=== PATIENT | female | born 1990 | race Two or more races ===

== ENCOUNTER 2024-12-05 10:17 | Outpatient (AMB) | payer OTHER, SELFPAY ==
--- NOTE | 2024-12-05 10:20 | OBCLNT_ITS ---
Vital Signs 12/05/24 10:29 Height 1.65 m Height Method Stated Weight 118.047 kg Weight Measurement Method Standing Scale BMI 43.2 BP 123/78 Blood Pressure Source Automatic Cuff Blood Pressure Location Left Upper Arm Position Sitting Respiration 20 Pulse 74 Pulse Source Monitor Temp 98.2 F Temp Source Temporal Artery Scan Pulse Oximetry (%) 98 Oxygen Delivery Method Room Air Allergies/Home Meds Allergies & Medications Allergies No Known Allergies Allergy (Verified 12/05/24 10:30) Medication Reconciliation vits no.126-ferrous fum 28 mg iron-folic acid 800 mcg tablet (Classic ) tab PO 12/05/24 [History Confirmed 12/05/24] Intake Visit Data Collection New Patient or Established: New Patient (never been to [facility]) Reason for Visit:: obi Do You Feel Safe at Home: Yes Authorities Contacted: N/A PCP or OBGYN visit in last 3 months: Yes Last menstrual period: 10/02/24 Pain Present Currently: No Smoking Status Smoking Status: Never smoker Questionnaires Covid-19 Vaccine Questionnaire Has patient been vacinated for Covid-19 Have you been vacinated for Covid-19: Yes PHQ-9 PHQ-2 Over the last 2 weeks, how often have you been bothered by any of the following problems? 1. Little interest or pleasure in doing things: not at all 2. Feeling down, depressed, or hopeless: not at all Total score: 0 Depression screen completed yes Social History Living Situation History Marital Status: Life Partner Lives With: Family Housing: House Housing Other:: Patient works at [employer] in [place] Tobacco History Smoking Status: Never smoker Alcohol History Alcohol Intake: Never Domestic Abuse History Do You Feel Safe at Home: Yes History of Present Illness HPI Narrative The patient is a 34-year-old -0-2-0 who used to see me in [place]. She underwent a miscarriage in 2022 she was about 6 weeks along. She states that was going to schedule a D&C however she miscarried on her own. She then had a very early chemical in 2023 where she did not really miss a cycle.Her period was a couple days late and heavier so she thinks this was a . Patient has had gastric sleeve in the past. She still has a BMI starting this at 43. 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 The father the baby Marcelo is present with her today. OB Ultrasound Indication Indication: Size dates viability OB Ultrasound Ultrasound technique: transvaginal Gestational sac assessment: Presence, location, size, shape: Live intrauterine with a crown-rump length of 2 cm corresponding to 8 weeks 2 days and an EDC of 07/18/2025 cardiac to activity at 140s MANAGER OF WAREHOUSE: Past Medical History Additional Operations/Hospitalizations (year & reason): Obesity status post gastric sleeve in 2019 Other Relevant History: Early miscarriage x 2 in 2022 and 2023 neither required a D&C. OB Initial Visit OB Flowsheet OB Flowsheet Initial Weight: Not Recorded Date -?-?-?-?-?-?-?-?-?-?-?-?- EGA Weight Edema CTX Effacement BP Fundal ht Pres Dilation Effacement Station Visit Note Alb Glu FHR Mov 12/05/24 -?-?-?-?-?-?-?-?-?-?-?-?- 8w 1d 118.047 kg 123/78 145 Menstrual History Menstrual reliability: definite Flow: normal Menstrual regularity: regular Monthly: Yes Age at menarche: 12 On control pills at conception: No Date of positive home test: 10/30/24 OB History : 3 Hx Total # of Abortions (Spontaneous & Elective): 2 Infection History & Risk Evaluation History of STDs: none HIV risk evaluation: low risk Hepatitis B risk evaluation: low risk Patient or partner has history of Genital Herpes: No Varicella/chicken pox status: immunized Genetic Screening & History Genetic Screening/Teratology Counseling - Includes patient, baby's father, or anyone in either family with: 1. Patient's age 35 years or older as of estimated date of delivery: Yes 2. Thalassemia (Turkish, Tajik, Mediterranean, or Background); MCV less than 80: No 3. Neural Tube Defect (Meningomyelocele, Spina Bifida, or Anencephaly): No 4. Congenital Heart Defect: No 5. Down Syndrome: No 6. Obie-Sachs (Ashkenazi Druze, Cajun, Turkish [place]): No 7. Ilana Disease (Ashkenazi Druze): No 8. Familial Dysautonomia (Ashkenazi Druze): No 9. Sickle Cell Disease or Trait (): No 10. Hemophilia or other blood disorders: No 11. Muscular Dystrophy: No 12. Cystic Fibrosis: No 13. Yaritza's Chorea: No 14. Mental Retardation/Autism: No 15. Other inherited genetic or chromosomal disorder: No 16. Maternal Metabolic Disorder (EG,TYPE 1 Diabetes, PKU): No 17. Patient or baby's father had a child with defects not listed above: No 18. Recurrent loss or a stillbirth: No 19. Medications (including supplements, vitamins, herbs or otc drugs)/illicit/recreational drugs/alcohol since last menstrual period: No 20. Any other: No Infection History 1. Live with someone with TB or exposed to TB: No 2. Rash or viral illness since last menstrual period: No 3. Hepatitis B,C: No Other (see comments) Source: [employer] Exam General General Appearance: alert, comfortable, cooperative, well developed, well groomed and obese Neck Neck exam: Present normal inspection, full ROM and trachea midline Chest Chest inspection: Present normal inspection and symmetric chest wall rise Resp Respiratory exam: Present normal lung sounds bilaterally Card Cardiovascular exam: Present regular rate, normal rhythm and normal heart sounds Extremities Extremities exam: Present normal inspection and full ROM Psych Psychiatric exam: Present normal affect and normal mood Skin Skin exam: Present warm, dry, intact and normal color Office Procedures OB Clinic LOC & Office Proc's Nursing/Assessment Patient Status: Initial/New Patient OB Clinic Nursing Assessment: BP Monitoring, Medication Reconciliation, Update PMH in EMR and Vital Signs OB Clinic Coordination of Care: Complex Care and Chronic Disease 1-5, Education Complex Pt/Fam, Consent,records obtained, informed consent, Results/Orders obtained and Staff clarify orders New Patient Charge New Patient Point Assignment: [id number] New Patient Point Charge: BINGO MANAGER Level 3 ([id number]) Bedside Ultrasounds US Transvaginal at bedside: Yes Assessment & Plan Diagnosis / Problem List (1) : Status: Acute Qualifiers: Weeks of gestation: 8 weeks Qualified Code(s): Z3A.08 - 8 weeks gestation of Assessment and Plan: labs ordered. Patient will start baby aspirin for obesity. Patient on vitamins. Information on NIPT given. (2) Morbid obesity with BMI of 40.0-44.9, adult: Status: Acute Assessment and Plan: Start baby aspirin. Monitor for PIH and gestational diabetes secondary to obesity. (3) H/O gastric sleeve: Status: Acute Assessment and Plan: Monitor iron throughout Additional Plan Follow Up: 4 Weeks
[2024-12-05 10:29] VITALS: BP 123/78; PULSE 74; RESP 20; TEMP 36.8; O2SAT 98; BMI 43.2
== END 2024-12-05 11:22 | disposition home or self-care (01) ==
LOC: HODSOBC 10:17
PROVIDERS: Supervising Provider Obstetrics & Gynecology; Visit Provider Obstetrics & Gynecology
DX: O09.521 Supervision of elderly multigravida, first trimester (principal); Z3A.08 8 weeks gestation of pregnancy; O09.291 Supervision of pregnancy with other poor reproductive or obstetric history, first trimester; O09.891 Supervision of other high risk pregnancies, first trimester; E66.01 Morbid (severe) obesity due to excess calories; O99.841 Bariatric surgery status complicating pregnancy, first trimester
CPT/HCPCS: 76817; 99203; G0463

== ENCOUNTER 2024-12-26 09:37 | Outpatient (AMB) | payer OTHER, SELFPAY ==
[2024-12-26 09:49] VITALS: BP 127/89; PULSE 67; RESP 17; TEMP 36.8; O2SAT 98; BMI 43.6
--- NOTE | 2024-12-26 09:49 | OBCLNT_ITS ---
Vital Signs 12/26/24 09:49 Height 1.65 m Height Method Stated Weight 118.841 kg Weight Measurement Method Standing Scale BMI 43.6 BP 127/89 H Blood Pressure Source Automatic Cuff Blood Pressure Location Right Upper Arm Position Sitting Respiration 17 Pulse 67 Pulse Source Monitor Temp 98.2 F Temp Source Temporal Artery Scan Pulse Oximetry (%) 98 Oxygen Delivery Method Room Air Allergies/Home Meds Allergies & Medications Allergies No Known Allergies Allergy (Verified 12/26/24 09:50) Medication Reconciliation vits no.126-ferrous fum 28 mg iron-folic acid 800 mcg tablet (Classic ) tab PO 12/05/24 [History Confirmed 12/26/24] Intake Visit Data Collection New Patient or Established: Established Patient (seen at [facility] within 3 years) Reason for Visit:: OBC Seen by Clinical Staff ONLY (RN/MA): No Delivery Truck Driver Heavy Required: No Do You Feel Safe at Home: Yes Authorities Contacted: N/A PCP or OBGYN visit in last 3 months: Yes Date of Last PCP or OBGYN visit: 12/05/24 Hx Now: Yes Are you currently on any form of Control: No Pain Present Currently: No Pain Scale Used: Lopez-Springer/Numerical Pain scale:: 0 Smoking Status Smoking Status: Never smoker Questionnaires Covid-19 Vaccine Questionnaire Has patient been vacinated for Covid-19 Have you been vacinated for Covid-19: Yes PHQ-9 PHQ-2 Over the last 2 weeks, how often have you been bothered by any of the following problems? 1. Little interest or pleasure in doing things: not at all 2. Feeling down, depressed, or hopeless: not at all Total score: 0 PHQ-9 3. Trouble falling or staying asleep, or sleeping too much: Not at all 4. Feeling tired or having little energy: Not at all 5. Poor appetite or overeating: Not at all 6. Feeling bad about yourself - or that you are a failure or have let yourself or your family down: Not at all 7. Trouble concentrating on things, such as reading the newspaper or watching television: Not at all 8. Moving or speaking so slowly that other people could have noticed? - Or the opposite - being so fidgety or restless that you have been moving around a lot more than usual: not at all 9. Thoughts that you would be better off or of hurting yourself in some way: Not at all Total score: 0 If you checked off any problems, how difficult have these problems made it for you to do your work, take care of things at home, or get along with other people?: not difficult at all Source: Developed by Drs. Rosalino Jones, Maranda Kearney, Leon Almonte and colleagues, with an educational joe from [employer]. Depression screen completed yes Social History Living Situation History Lives With: Family Housing: House Housing Other:: Patient works at [employer] in [place] Tobacco History Smoking Status: Never smoker Alcohol History Alcohol Intake: Never Domestic Abuse History Do You Feel Safe at Home: Yes LEVERMAN: Past Medical History Additional Operations/Hospitalizations (year & reason): The patient is a 34-year-old -0-2-0 status post early miscarriage x 2 in the past. Other Relevant History: Obesity with gastric sleeve in the past. History of Present Illness HPI Narrative The patient is a 34-year-old -0-2-0 status post early miscarriage in the past history of gastric sleeve who presents for obstetrical care. OB Ultrasound Indication Indication: Size, dates, viability OB Ultrasound Ultrasound technique: transabdominal Gestational sac assessment: Presence, location, size, shape: Live intrauterine with a crown-rump length of 4.51 cm corresponding 11 weeks 2 days Care OB Visit Log OB Flowsheet Initial Weight: Not Recorded Date -?-?-?-?-?-?-?-?-?-?-?-?- EGA Weight BP Alb Glu CTX Pres Fundal ht FHR Mov Dilation Station Effacement Hx Notes Visit Note 12/05/24 -?-?-?-?-?-?-?-?-?-?-?-?- 8w 1d 118.047 kg 123/78 145 12/26/24 -?-?-?-?-?-?-?-?-?-?-?-?- 11w 1d 118.841 kg 127/89 155 No vaginal bleeding. Patient is anxious as she has had 2 early miscarriages. Live intrauterine with crown- rump length of 4.51 cm corresponding 11 weeks 2 days seen. Patient does desire NIPT. She works at [employer]. Her is present today. MICHAEL Calculator Estimated Delivery Date Method Current WG Current Estimate 07/16/25 Ultrasound #1 11w 1d Other Estimates 07/09/25 LMP (Uncertain) 12w 1d Comments: -0-2-0 LMP 10/02/2024 labs O+\antibody negative\rubella immune\RPR nonreactive\HIV negative\hepatitis B surface antigen negative/ GC negative\chlamydia negative no hepatitis C drawn. Specific Issue/Plans 1. Morbid obesity with a BMI of 44 on baby aspirin. For level 2 ultrasound. 2. History of gastric sleeve in the past 3. Will need NSTs secondary to maternal morbid obesity. Notes Visit Date: 12/26/24 Last Updated by: Day Spears (OB Clinic)MD Patient on baby aspirin. Works at [employer]. They are aware she is . Father baby at bedside. labs reviewed. [facility]IPT ordered from [facility]. Visit Date: 12/05/24 Last Updated by: Day Spears (OB Clinic)MD New OB. Labs done. NIPT offered, Baby ASA foe maternal BMI of 42 Office Procedures OB Clinic LOC & Office Proc's Nursing/Assessment Patient Status: Established Patient OB Clinic Nursing Assessment: Medication Reconciliation, Update PMH in EMR and Vital Signs OB Clinic Coordination of Care: Complex Care and Chronic Disease 1-5, Consent,records obtained, informed consent, Education Simp Pt/Fam and Staff clarify orders Special Needs: Heart tones Established Patient Charge Established Patient Point Assignment: 115 Established Patient Point Charge: EP Level 3 (80-115) Assessment & Plan Diagnosis / Problem List (1) H/O gastric sleeve: Status: Acute (2) Morbid obesity with BMI of 40.0-44.9, adult: Status: Acute (3) : Status: Acute Qualifiers: Weeks of gestation: 11 weeks Qualified Code(s): Z3A.11 - 11 weeks gestation of Assessment and Plan: NIPT scheduled at [facility]
== END 2024-12-26 10:53 | disposition home or self-care (01) ==
LOC: HODSOBC 09:37
PROVIDERS: Supervising Provider Obstetrics & Gynecology; Visit Provider Obstetrics & Gynecology
DX: O09.521 Supervision of elderly multigravida, first trimester (principal); O09.291 Supervision of pregnancy with other poor reproductive or obstetric history, first trimester; O26.21 Pregnancy care for patient with recurrent pregnancy loss, first trimester; O09.891 Supervision of other high risk pregnancies, first trimester; Z3A.11 11 weeks gestation of pregnancy; O99.211 Obesity complicating pregnancy, first trimester; E66.01 Morbid (severe) obesity due to excess calories; O99.841 Bariatric surgery status complicating pregnancy, first trimester
CPT/HCPCS: 99213; G0463

== ENCOUNTER 2025-01-24 13:06 | Outpatient (AMB) | payer OTHER, SELFPAY ==
[2025-01-24 13:18] VITALS: BP 127/81; PULSE 75; RESP 17; TEMP 37; O2SAT 99; BMI 44.4
--- NOTE | 2025-01-24 13:18 | OBCLNT_ITS ---
Vital Signs 01/24/25 13:18 Height 1.65 m Height Method Stated Weight 121.109 kg Weight Measurement Method Standing Scale BMI 44.4 BP 127/81 Blood Pressure Source Automatic Cuff Blood Pressure Location Right Upper Arm Position Sitting Respiration 17 Pulse 75 Pulse Source Monitor Temp 98.6 F Temp Source Temporal Artery Scan Pulse Oximetry (%) 99 Oxygen Delivery Method Room Air Allergies/Home Meds Allergies & Medications Allergies No Known Allergies Allergy (Verified 01/24/25 13:19) Medication Reconciliation vits no.126-ferrous fum 28 mg iron-folic acid 800 mcg tablet (Classic ) tab PO 12/05/24 [History Confirmed 01/24/25] Intake Visit Data Collection New Patient or Established: Established Patient (seen at [facility] within 3 years) Reason for Visit:: OBC Seen by Clinical Staff ONLY (RN/MA): No Resource Management Planner Required: No Do You Feel Safe at Home: Yes Authorities Contacted: N/A PCP or OBGYN visit in last 3 months: Yes Date of Last PCP or OBGYN visit: 12/26/24 Hx Now: Yes Are you currently on any form of Control: No Pain Present Currently: No Pain Scale Used: Lopez-Springer/Numerical Pain scale:: 0 Smoking Status Smoking Status: Never smoker Questionnaires Covid-19 Vaccine Questionnaire Has patient been vacinated for Covid-19 Have you been vacinated for Covid-19: No PHQ-9 PHQ-2 Over the last 2 weeks, how often have you been bothered by any of the following problems? 1. Little interest or pleasure in doing things: not at all 2. Feeling down, depressed, or hopeless: not at all Total score: 0 PHQ-9 3. Trouble falling or staying asleep, or sleeping too much: Not at all 4. Feeling tired or having little energy: Not at all 5. Poor appetite or overeating: Not at all 6. Feeling bad about yourself - or that you are a failure or have let yourself or your family down: Not at all 7. Trouble concentrating on things, such as reading the newspaper or watching television: Not at all 8. Moving or speaking so slowly that other people could have noticed? - Or the opposite - being so fidgety or restless that you have been moving around a lot more than usual: not at all 9. Thoughts that you would be better off or of hurting yourself in some way: Not at all Total score: 0 If you checked off any problems, how difficult have these problems made it for you to do your work, take care of things at home, or get along with other people?: not difficult at all Source: Developed by Drs. Rosalino Jones, Maranda Kearney, Leon Almonte and colleagues, with an educational joe from [employer]. Depression screen completed yes Social History Living Situation History Marital Status: Lives With: Family Housing: House Housing Other:: Patient works at [employer] in [place] Tobacco History Smoking Status: Never smoker Second Hand Smoke Exposure: No Alcohol History Alcohol Intake: Never Domestic Abuse History Do You Feel Safe at Home: Yes Care OB Visit Log OB Flowsheet Initial Weight: Not Recorded Date -?-?-?-?-?-?-?-?-?-?-?-?- EGA Weight BP Alb Glu CTX Pres Fundal ht FHR Mov Dilation Station Effacement Hx Notes Visit Note 12/05/24 -?-?-?-?-?-?-?-?-?-?-?-?- 8w 1d 118.047 kg 123/78 145 12/26/24 -?-?-?-?-?-?-?-?-?-?-?-?- 11w 1d 118.841 kg 127/89 155 No vaginal bleeding. Patient is anxious as she has had 2 early miscarriages. Live intrauterine with crown- rump length of 4.51 cm corresponding 11 weeks 2 days seen. Patient does desire NIPT. She works at [employer]. Her is present today. 01/24/25 -?-?-?-?-?-?-?-?-?-?-?-?- 15w 2d 121.109 kg 127/81 15 157 absent No vaginal bleeding or contractions MICHAEL Calculator Estimated Delivery Date Method Current WG Current Estimate 07/16/25 Ultrasound #1 15w 2d Other Estimates 07/09/25 LMP (Uncertain) 16w 2d Expected Delivery Route/Plan labs on the chart.O+/antibody negative/rubella immune/ RPR nonreactive/hepatitis B surface antigen negative/HIV negative/GC negative/ Chlamydia negative /urine culture negative/ Specific Issue/Plans 1. Morbid obesity with a BMI of 44 on baby aspirin. For level 2 ultrasound. 2. History of gastric sleeve in the past 3. Will need NSTs secondary to maternal morbid obesity. Notes Visit Date: 01/24/25 Last Updated by: Day Spears (OB Clinic)MD Patient is present with the father of the baby. She is working at [employer]. She has no complaints. Her NIPT came back not enough cells. The plan is to recheck another NIPT and she has the paperwork for this. She has a level [address] Deluca March 05. Visit Date: 12/26/24 Last Updated by: Day Spears (OB Clinic)MD Patient on baby aspirin. Works at [employer]. They are aware she is . Father baby at bedside. labs reviewed. NIPT ordered from [facility]. Visit Date: 12/05/24 Last Updated by: Day Spears (OB Clinic)MD New OB. Labs done. NIPT offered, Baby ASA foe maternal BMI of 42 Office Procedures OB Clinic LOC & Office Proc's Nursing/Assessment Patient Status: Established Patient OB Clinic Nursing Assessment: Medication Reconciliation, Update PMH in EMR and Vital Signs OB Clinic Coordination of Care: Complex Care and Chronic Disease 1-5, Consent,records obtained, informed consent, Education Simp Pt/Fam and Staff clarify orders Special Needs: Heart tones Established Patient Charge Established Patient Point Assignment: 115 Established Patient Point Charge: EP Level 3 (80-115)
== END 2025-01-24 13:57 | disposition home or self-care (01) ==
LOC: HODSOBC 13:06
PROVIDERS: Supervising Provider Obstetrics & Gynecology; Visit Provider Obstetrics & Gynecology
DX: O09.892 Supervision of other high risk pregnancies, second trimester (principal); O99.212 Obesity complicating pregnancy, second trimester; E66.01 Morbid (severe) obesity due to excess calories; O09.522 Supervision of elderly multigravida, second trimester; O99.842 Bariatric surgery status complicating pregnancy, second trimester; O09.292 Supervision of pregnancy with other poor reproductive or obstetric history, second trimester; O26.22 Pregnancy care for patient with recurrent pregnancy loss, second trimester; Z3A.15 15 weeks gestation of pregnancy; Z79.82 Long term (current) use of aspirin
CPT/HCPCS: 99213; G0463

== ENCOUNTER 2025-03-13 09:13 | Outpatient (AMB) | payer OTHER, SELFPAY ==
[2025-03-13 09:28] VITALS: BP 119/80; PULSE 91; RESP 18; TEMP 36.6; O2SAT 98; BMI 46.2
--- NOTE | 2025-03-13 09:28 | OBCLNT_ITS ---
Vital Signs 03/13/25 09:28 Height 1.65 m Height Method Stated Weight 125.872 kg Weight Measurement Method Standing Scale BMI 46.2 BP 119/80 Blood Pressure Source Automatic Cuff Blood Pressure Location Left Upper Arm Position Sitting Respiration 18 Pulse 91 Pulse Source Monitor Temp 97.8 F Temp Source Oral Pulse Oximetry (%) 98 Oxygen Delivery Method Room Air Allergies/Home Meds Allergies & Medications Allergies No Known Allergies Allergy (Verified 03/13/25 09:30) Medication Reconciliation vits no.126-ferrous fum 28 mg iron-folic acid 800 mcg tablet (Classic ) tab PO 12/05/24 [History Confirmed 03/13/25] Intake Visit Data Collection New Patient or Established: Established Patient (seen at [facility] within 3 years) Reason for Visit:: CARE Seen by Clinical Staff ONLY (RN/MA): No Black Top Roller Required: No Do You Feel Safe at Home: Yes Authorities Contacted: N/A PCP or OBGYN visit in last 3 months: Yes Hx Now: Yes Are you currently on any form of Control: No Pain Present Currently: No Pain Scale Used: Lopez-Springer/Numerical Pain scale:: 0 Smoking Status Smoking Status: Never smoker Questionnaires Covid-19 Vaccine Questionnaire Has patient been vacinated for Covid-19 Have you been vacinated for Covid-19: Yes PHQ-9 PHQ-2 Over the last 2 weeks, how often have you been bothered by any of the following problems? 1. Little interest or pleasure in doing things: not at all 2. Feeling down, depressed, or hopeless: not at all Total score: 0 PHQ-9 3. Trouble falling or staying asleep, or sleeping too much: Not at all 4. Feeling tired or having little energy: Not at all 5. Poor appetite or overeating: Not at all 6. Feeling bad about yourself - or that you are a failure or have let yourself or your family down: Not at all 7. Trouble concentrating on things, such as reading the newspaper or watching television: Not at all 8. Moving or speaking so slowly that other people could have noticed? - Or the opposite - being so fidgety or restless that you have been moving around a lot more than usual: not at all 9. Thoughts that you would be better off or of hurting yourself in some way: Not at all Total score: 0 Source: Developed by Drs. Rosalino Jones, Maranda Kearney, Leon Almonte and colleagues, with an educational joe from [employer]. Depression screen completed yes Social History Living Situation History Lives With: Family Housing: House Housing Other:: Patient works at [employer] in [place] Tobacco History Smoking Status: Never smoker Second Hand Smoke Exposure: No Alcohol History Alcohol Intake: Never Domestic Abuse History Do You Feel Safe at Home: Yes Care OB Visit Log OB Flowsheet Initial Weight: Not Recorded Date -?-?-?-?-?-?-?-?-?-?-?-?- EGA Weight BP Alb Glu CTX Pres Fundal ht FHR Mov Dilation Station Effacement Hx Notes Visit Note 12/05/24 -?-?-?-?-?-?-?-?-?-?-?-?- 8w 1d 118.047 kg 123/78 145 12/26/24 -?-?-?-?-?-?-?-?-?-?-?-?- 11w 1d 118.841 kg 127/89 155 No vaginal bleeding. Patient is anxious as she has had 2 early miscarriages. Live intrauterine with crown- rump length of 4.51 cm corresponding 11 weeks 2 days seen. Patient does desire NIPT. She works at [employer]. Her is present today. 01/24/25 -?-?-?-?-?-?-?-?-?-?-?-?- 15w 2d 121.109 kg 127/81 15 157 absent No vaginal bleeding or contractions 03/13/25 -?-?-?-?-?-?-?-?-?-?-?-?- 22w 1d 125.872 kg 119/80 23 134 active Reviewed normal ultrasound 03/06/2025 Dr. Deluca. NIPT the second time she did it was 46XX. No contractions or vaginal bleeding. No loss of fluids. MICHAEL Calculator Estimated Delivery Date Method Current WG Current Estimate 07/16/25 Ultrasound #1 22w 1d Other Estimates 07/09/25 LMP (Uncertain) 23w 1d Expected Delivery Route/Plan labs on the chart.O+/antibody negative/rubella immune/ RPR nonreactive/hepatitis B surface antigen negative/HIV negative/GC negative/ Chlamydia negative /urine culture negative/ Specific Issue/Plans 1. Morbid obesity with a BMI of 44 on baby aspirin. For level 2 ultrasound. ( Dr Deluca 03/05/25) 2. History of gastric sleeve in the past 3. Will need NSTs secondary to maternal morbid obesity. Notes Visit Date: 03/13/25 Last Updated by: Day Spears (OB Clinic)MD Level 2 ultrasound 03/06/2025 Dr. Deluca live intrauterine in the breech presentation estimated weight 404 g EDC on ultrasound 07/19/2025. EDC by dating 07/09/2025 .normal anatomy . baby is in the 11th percentile SALAS normal placenta is posterior follow-up in 4 weeks for growth. Glucose challenge test ordered along with all lab work for history of gastric sleeve. Including CBC folate and B12 iron. Note for work. Visit Date: 01/24/25 Last Updated by: Day Spears (OB Clinic)MD Patient is present with the father of the baby. She is working at [employer]. She has no complaints. Her NIPT came back not enough cells. The plan is to recheck another NIPT and she has the paperwork for this. She has a level [address] Deluca March 05. Visit Date: 12/26/24 Last Updated by: Day Spears (OB Clinic)MD Patient on baby aspirin. Works at [employer]. They are aware she is . Father baby at bedside. labs reviewed. NIPT ordered from [facility]. Visit Date: 12/05/24 Last Updated by: Day Spears (OB Clinic)MD New OB. Labs done. NIPT offered, Baby ASA foe maternal BMI of 42 Office Procedures OB Clinic LOC & Office Proc's Nursing/Assessment Patient Status: Established Patient OB Clinic Nursing Assessment: Medication Reconciliation, Update PMH in EMR and Vital Signs OB Clinic Coordination of Care: Complex Care and Chronic Disease 1-5, Consent,records obtained, informed consent, Education Simp Pt/Fam, Lab and Imaging orders, Results/Orders obtained and Staff clarify orders Special Needs: Heart tones Established Patient Charge Established Patient Point Assignment: 135 Established Patient Point Charge: EP Level 4 (120-155) Assessment & Plan Diagnosis / Problem List (1) H/O gastric sleeve: Status: Acute (2) Morbid obesity with BMI of 40.0-44.9, adult: Status: Acute (3) : Status: Acute Qualifiers: Weeks of gestation: 22 weeks Qualified Code(s): Z3A.22 - 22 weeks [place] station of Additional Plan Follow Up: 4 Weeks
== END 2025-03-13 10:08 | disposition home or self-care (01) ==
LOC: HODSOBC 09:13
PROVIDERS: Supervising Provider Obstetrics & Gynecology; Visit Provider Obstetrics & Gynecology
DX: O09.522 Supervision of elderly multigravida, second trimester (principal); O09.292 Supervision of pregnancy with other poor reproductive or obstetric history, second trimester; Z3A.22 22 weeks gestation of pregnancy; O09.892 Supervision of other high risk pregnancies, second trimester; O99.212 Obesity complicating pregnancy, second trimester; E66.01 Morbid (severe) obesity due to excess calories; O99.842 Bariatric surgery status complicating pregnancy, second trimester; O32.1XX0 Maternal care for breech presentation, not applicable or unspecified; Z87.59 Personal history of other complications of pregnancy, childbirth and the puerperium
CPT/HCPCS: 99214; G0463

== ENCOUNTER 2025-04-10 14:10 | Observation (INO) | payer OTHER, SELFPAY ==
[2025-04-10] VITALS (16 sets, daily range): BP systolic 119; BP diastolic 65; PULSE 90–106; RESP 19–99; TEMP 36.8; O2SAT 98–99; BMI 47.4
--- NOTE | 2025-04-10 14:49 | XR_ITS ---
Examination: OB Transvaginal ultrasound of the pelvis, Limited Technique: Transvaginal sonographic images pelvis performed using shah scale imaging Exam date and time: April 10, 2025, 1526 hours INDICATIONS: Onset vaginal bleeding today, 27 week by history. FINDINGS: Cervix 4.2 cm closed IMPRESSION: Cervix 4.2 cm closed
--- NOTE | 2025-04-10 14:54 | XR_ITS ---
Examination: age Limited TECHNIQUE: Limited transabdominal sonographic images pelvis Date and time: April 10, 2025 1521 hours INDICATIONS: Vaginal bleeding today. FINDINGS: Viable intrauterine gestation cephalic presentation. spine maternal left. Cardiac motion 152 BPM. Placenta posterior grade 2 no abruption IMPRESSION: Viable intrauterine gestation cephalic presentation
== END 2025-04-10 16:52 | disposition home or self-care (01) ==
PROVIDERS: Admitting Provider Obstetrics & Gynecology; Referring Provider Obstetrics & Gynecology; Visit Provider Obstetrics & Gynecology
DX: O46.92 Antepartum hemorrhage, unspecified, second trimester (principal); Z3A.27 27 weeks gestation of pregnancy
CPT/HCPCS: 59025; 59899; 76815; 76817

== ENCOUNTER 2025-04-12 08:36 | Outpatient (AMB) | payer OTHER, SELFPAY ==
[2025-04-12 08:46] VITALS: BP 135/80; PULSE 98; RESP 16; TEMP 36.2; O2SAT 98; BMI 47.8
--- NOTE | 2025-04-12 08:46 | OBCLNT_ITS ---
Vital Signs 04/12/25 08:46 Height 1.65 m Height Method Stated Weight 130.238 kg Weight Measurement Method Standing Scale BMI 47.8 BP 135/80 H Blood Pressure Source Automatic Cuff Blood Pressure Location Left Upper Arm Position Sitting Respiration 16 Pulse 98 Pulse Source Monitor Temp 97.2 F Temp Source Oral Pulse Oximetry (%) 98 Oxygen Delivery Method Room Air Allergies/Home Meds Allergies & Medications Allergies No Known Allergies Allergy (Verified 04/12/25 08:47) Medication Reconciliation vits no.126-ferrous fum 28 mg iron-folic acid 800 mcg tablet (Classic ) 1 tab PO DAILY 12/05/24 [History Confirmed 04/12/25] Intake Visit Data Collection New Patient or Established: Established Patient (seen at [facility] within 3 years) Reason for Visit:: OBC Seen by Clinical Staff ONLY (RN/MA): No Temporary Administrative Assistant Required: No Do You Feel Safe at Home: Yes Authorities Contacted: N/A PCP or OBGYN visit in last 3 months: Yes Date of Last PCP or OBGYN visit: 04/10/25 Hx Now: Yes Are you currently on any form of Control: No Pain Present Currently: No Pain Scale Used: Lopez-Springer/Numerical Pain scale:: 0 Smoking Status Smoking Status: Never smoker Questionnaires Covid-19 Vaccine Questionnaire Has patient been vacinated for Covid-19 Have you been vacinated for Covid-19: Yes PHQ-9 PHQ-2 Over the last 2 weeks, how often have you been bothered by any of the following problems? 1. Little interest or pleasure in doing things: not at all 2. Feeling down, depressed, or hopeless: not at all Total score: 0 PHQ-9 3. Trouble falling or staying asleep, or sleeping too much: Not at all 4. Feeling tired or having little energy: Not at all 5. Poor appetite or overeating: Not at all 6. Feeling bad about yourself - or that you are a failure or have let yourself or your family down: Not at all 7. Trouble concentrating on things, such as reading the newspaper or watching television: Not at all 8. Moving or speaking so slowly that other people could have noticed? - Or the opposite - being so fidgety or restless that you have been moving around a lot more than usual: not at all 9. Thoughts that you would be better off or of hurting yourself in some way: Not at all Total score: 0 If you checked off any problems, how difficult have these problems made it for you to do your work, take care of things at home, or get along with other people?: not difficult at all Source: Developed by Drs. Rosalino Jones, Maranda Kearney, Leon Almonte and colleagues, with an educational joe from [employer]. Depression screen completed yes Social History Living Situation History Lives With: Family Housing: House Housing Other:: Patient works at [employer] in [place] Tobacco History Smoking Status: Never smoker Second Hand Smoke Exposure: No Alcohol History Alcohol Intake: Never Domestic Abuse History Do You Feel Safe at Home: Yes Care OB Visit Log OB Flowsheet Initial Weight: Not Recorded Date -?-?-?-?-?-?-?-?-?-?-?-?- EGA Weight BP Alb Glu CTX Pres Fundal ht FHR Mov Dilation Station Effacement Hx Notes Visit Note 12/05/24 -?-?-?-?-?-?-?-?-?-?-?-?- 8w 1d 118.047 kg 123/78 145 12/26/24 -?-?-?-?-?-?-?-?-?-?-?-?- 11w 1d 118.841 kg 127/89 155 No vaginal bleeding. Patient is anxious as she has had 2 early miscarriages. Live intrauterine with crown- rump length of 4.51 cm corresponding 11 weeks 2 days seen. Patient does desire NIPT. She works at [employer]. Her is present today. 01/24/25 -?-?-?-?-?-?-?-?-?-?-?-?- 15w 2d 121.109 kg 127/81 15 157 absent No vaginal bleeding or contractions 03/13/25 -?-?-?-?-?-?-?-?-?-?-?-?- 22w 1d 125.872 kg 119/80 23 134 active Reviewed normal ultrasound 03/06/2025 Dr. Deluca. NIPT the second time she did it was 46XX. No contrac tions or vaginal bleeding. No loss of fluids. 04/12/25 -?-?-?-?-?-?-?-?-?-?-?-?- 26w 3d 130.238 kg 135/80 occasional 27 156 active + FM no UCs or VB Went to OBT with VB recently MICHAEL Calculator Estimated Delivery Date Method Current WG Current Estimate 07/16/25 Ultrasound #1 26w 3d Other Estimates 07/09/25 LMP (Uncertain) 27w 3d Expected Delivery Route/Plan labs on the chart.O+/antibody negative/rubella immune/ RPR non reactive/hepatitis B surface antigen negative/HIV negative/GC negative/ Chlamydia negative /urine culture negative/ 1 hour glucose 82. Hemoglobin A1c on 03/28/25 5.6 hemoglobin 03/28/25 10.8. Specific Issue/Plans 1. Morbid obesity with a BMI of 44 on baby aspirin. For level 2 ultrasound. ( Dr Deluca 03/05/25) 2. History of gastric sleeve in the past 3. Will need NSTs secondary to maternal morbid obesity. Notes Visit Date: 04/12/25 Last Updated by: Day Spears (OB Clinic)MD Patient has been to triage twice with bleeding. Most recently 2 days ago. She had a transvaginal ultrasound and no signs of labor or abruption. Patient is having a hard time at work. They are not accommodating her even though I wrote a note for her and told her they do not have a position for her. At this point we will take her off work on disability secondary to bleeding in . She will be on modified bedrest and pelvic rest the remainder of . Visit Date: 03/13/25 Last Updated by: Day Spears (OB Clinic)MD Level 2 ultrasound 03/06/2025 Dr. Deluca live intrauterine in the breech presentation estimated weight 404 g EDC on ultrasound 07/19/2025. EDC by dating 07/09/2025 .normal anatomy . baby is in the 11th percentile SALAS normal placenta is posterior follow-up in 4 weeks for growth. Glucose challenge test ordered along with all lab work for history of gastric sleeve. Including CBC folate and B12 iron. Note for work. Visit Date: 01/24/25 Last Updated by: Day Spears (OB Clinic)MD Patient is present with the father of the baby. She is working at [employer]. She has no complaints. Her NIPT came back not enough cells. The plan is to recheck another NIPT and she has the paperwork for this. She has a level [address] Deluca March 05. Visit Date: 12/26/24 Last Updated by: Day Spears (OB Clinic)MD Patient on baby aspirin. Works at [employer]. They are aware she is . Father baby at bedside. labs reviewed. NIPT ordered from [facility]. Visit Date: 12/05/24 Last Updated by: Day Spears (OB Clinic)MD New OB. Labs done. NIPT offered, Baby ASA foe maternal BMI of 42 Office Procedures OB Clinic LOC & Office Proc's Nursing/Assessment Patient Status: Established Patient OB Clinic Nursing Assessment: Medication Reconciliation, Update PMH in EMR and Vital Signs OB Clinic Coordination of Care: Education Complex Pt/Fam, Consent,records obtained, informed consent, Lab and Imaging orders, Results/Orders obtained and Staff clarify orders Special Needs: Heart tones Established Patient Charge Established Patient Point Assignment: 115 Established Patient Point Charge: EP Level 3 (80-115) Assessment & Plan Diagnosis / Problem List (1) H/O gastric sleeve: Status: Acute Plan: Encourage p.o. iron. Current hemoglobin 10.8. (2) Morbid obesity with BMI of 40.0-44.9, adult: Status: Acute Plan: Following with MFM on baby aspirin (3) : Status: Acute Qualifiers: Weeks of gestation: 27 weeks Qualified Code(s): Z3A.27 - 27 weeks gestation of Plan: Off work on modified bedrest and pelvic rest the remainder of secondary to bleeding.
== END 2025-04-12 08:59 | disposition home or self-care (01) ==
LOC: HODSOBC 08:36
PROVIDERS: Supervising Provider Obstetrics & Gynecology; Visit Provider Obstetrics & Gynecology
DX: O09.892 Supervision of other high risk pregnancies, second trimester (principal); O99.212 Obesity complicating pregnancy, second trimester; E66.01 Morbid (severe) obesity due to excess calories; O99.842 Bariatric surgery status complicating pregnancy, second trimester; O09.522 Supervision of elderly multigravida, second trimester; Z3A.26 26 weeks gestation of pregnancy
CPT/HCPCS: 99213; G0463

== ENCOUNTER 2025-05-01 09:07 | Outpatient (AMB) | payer OTHER, SELFPAY ==
--- NOTE | 2025-05-01 09:14 | AMB.OBVISIT ---
Vital Signs 05/01/25 09:15 Height 1.65 m Height Method Stated Weight 132.052 kg Weight Measurement Method Standing Scale BMI 48.4 BP 113/77 Blood Pressure Source Automatic Cuff Blood Pressure Location Left Upper Arm Position Sitting Respiration 17 Pulse 108 H Pulse Source Monitor Temp 98.0 F Temp Source Temporal Artery Scan Pulse Oximetry (%) 98 Allergies/Home Meds Allergies & Medications Allergies No Known Allergies Allergy (Verified 05/01/25 09:17) Medication Reconciliation vits no.126-ferrous fum 28 mg iron-folic acid 800 mcg tablet (Classic ) 1 tab PO DAILY 12/05/24 [History Confirmed 05/01/25] aspirin 81 mg tablet 81 mg PO QDAY 05/01/25 [History Confirmed 05/01/25] Intake Visit Data Collection New Patient or Established: Established Patient (seen at [facility] within 3 years) Reason for Visit:: OBC Seen by Clinical Staff ONLY (RN/MA): No Panel Machine Tender Required: No Do You Feel Safe at Home: Yes Authorities Contacted: N/A PCP or OBGYN visit in last 3 months: Yes Date of Last PCP or OBGYN visit: 04/12/25 Hx Now: Yes Are you currently on any form of Control: No Pain Present Currently: No Pain Scale Used: Lopez-Springer/Numerical Pain scale:: 0 Smoking Status Smoking Status: Never smoker Questionnaires Covid-19 Vaccine Questionnaire Has patient been vacinated for Covid-19 Have you been vacinated for Covid-19: Yes PHQ-9 PHQ-2 Over the last 2 weeks, how often have you been bothered by any of the following problems? 1. Little interest or pleasure in doing things: not at all 2. Feeling down, depressed, or hopeless: not at all Total score: 0 PHQ-9 3. Trouble falling or staying asleep, or sleeping too much: Not at all 4. Feeling tired or having little energy: Not at all 5. Poor appetite or overeating: Not at all 6. Feeling bad about yourself - or that you are a failure or have let yourself or your family down: Not at all 7. Trouble concentrating on things, such as reading the newspaper or watching television: Not at all 8. Moving or speaking so slowly that other people could have noticed? - Or the opposite - being so fidgety or restless that you have been moving around a lot more than usual: not at all 9. Thoughts that you would be better off or of hurting yourself in some way: Not at all Total score: 0 If you checked off any problems, how difficult have these problems made it for you to do your work, take care of things at home, or get along with other people?: not difficult at all Source: Developed by Drs. Rosalino Jones, Maranda Kearney, Leon Almonte and colleagues, with an educational joe from [employer]. Depression screen completed yes Social History Living Situation History Marital Status: Single Lives With: Family Housing: House Housing Other:: Patient works at [employer] in [place] Tobacco History Smoking Status: Never smoker Second Hand Smoke Exposure: No Alcohol History Alcohol Intake: Never Domestic Abuse History Do You Feel Safe at Home: Yes Care OB Visit Log OB Flowsheet Initial Weight: Not Recorded Date <del>?</del> EGA Weight BP Alb Glu CTX Pres Fundal ht FHR Mov Dilation Station Effacement Hx Notes Visit Note 12/05/24 <del>?</del> 8w 1d 118.047 kg 123/78 145 12/26/24 <del>?</del> 11w 1d 118.841 kg 127/89 155 No vaginal bleeding. Patient is anxious as she has had 2 early miscarriages. Live intrauterine with crown-rump length of 4.51 cm corresponding 11 weeks 2 days seen. Patient does desire NIPT. She works at [employer]. Her is present today. 01/24/25 <del>?</del> 15w 2d 121.109 kg 127/81 15 157 absent No vaginal bleeding or contractions 03/13/25 <del>?</del> 22w 1d 125.872 kg 119/80 23 134 active Reviewed normal ultrasound 03/06/2025 Dr. Deluca. NIPT the second time she did it was 46XX. No contractions or vaginal bleeding. No loss of fluids. 04/12/25 <del>?</del> 26w 3d 130.238 kg 135/80 occasional 27 156 active +FM no UCs or VB Went to OBT with VB recently 05/01/25 <del>?</del> 29w 1d 132.052 kg 113/77 occasional 32 134 active +FM No UCs or VB Has f/u US with Dr Deluca 05/15 MICHAEL Calculator Estimated Delivery Date Method Current WG Current Estimate 07/16/25 Ultrasound #1 30w 2d Other Estimates 07/09/25 LMP (Uncertain) 31w 2d Expected Delivery Route/Plan 35 y/o labs on the chart.O+/antibody negative/rubella immune/ RPR nonreactive/hepatitis B surface antigen negative/HIV negative/GC negative/ Chlamydia negative /urine culture negative/ 1 hour glucose 82. Hemoglobin A1c on 03/28/25 5.6 hemoglobin 03/28/25 10.8. Specific Issue/Plans 1. Morbid obesity with a BMI of 44 on baby aspirin. For level 2 ultrasound. ( Dr Deluca 03/05/25) 2. History of gastric sleeve in the past 3. Will need NSTs secondary to maternal morbid obesity. 4. AMA Notes Visit Date: 05/01/25 Last Updated by: Day Spears ([facility] Clinic)MD Pt off work. Will need NSTS/BPPS for BMI of 48 and AMA Did GCT and WNL Visit Date: 04/12/25 Last Updated by: Day Spears ([facility] Clinic)MD Patient has been to triage twice with bleeding. Most recently 2 days ago. She had a transvaginal ultrasound and no signs of labor or abruption. Patient is having a hard time at work. They are not accommodating her even though I wrote a note for her and told her they do not have a position for her. At this point we will take her off work on disability secondary to bleeding in . She will be on modified bedrest and pelvic rest the remainder of . Visit Date: 03/13/25 Last Updated by: Day Spears ([facility] Clinic)MD Level 2 ultrasound 03/06/2025 Dr. Deluca live intrauterine in the breech presentation estimated weight 404 g EDC on ultrasound 07/19/2025. EDC by dating 07/09/2025 .normal anatomy . baby is in the 11th percentile SALAS normal placenta is posterior follow-up in 4 weeks for growth. Glucose challenge test ordered along with all lab work for history of gastric sleeve. Including CBC folate and B12 iron. Note for work. Visit Date: 01/24/25 Last Updated by: Day Spears ([facility] Clinic)MD Patient is present with the father of the baby. She is working at [employer]. She has no complaints. Her NIPT came back not enough cells. The plan is to recheck another NIPT and she has the paperwork for this. She has a level [address] Deluca March 05. Visit Date: 12/26/24 Last Updated by: Day Spears ([facility] Clinic)MD Patient on baby aspirin. Works at [employer]. They are aware she is . Father baby at bedside. labs reviewed. NIPT ordered from [facility]. Visit Date: 12/05/24 Last Updated by: Day Spears (OB Clinic)MD New OB. Labs done. NIPT offered, Baby ASA foe maternal BMI of 42 Office Procedures OBC Clinic LOC & Office Proc's Nursing/Assessment Patient Status: Established Patient OB Clinic Nursing Assessment: Medication Reconciliation, Update PMH in EMR and Vital Signs OB Clinic Coordination of Care: Complex Care and Chronic Disease 1-5, Education Complex Pt/Fam, Consent,records obtained, informed consent and Staff clarify orders Special Needs: Heart tones Established Patient Charge Established Patient Point Assignment: 120 Established Patient Point Charge: EP Level 4 (120-155) Assessment & Plan Diagnosis / Problem List (1) H/O gastric sleeve: Status: Acute (2) Morbid obesity with BMI of 40.0-44.9, adult: Status: Acute (3) : Status: Acute Qualifiers: Weeks of gestation: 29 weeks Qualified Code(s): Z3A.29 - 29 weeks gestation of Additional Plan Follow Up: 2 Weeks
[2025-05-01 09:15] VITALS: BP 113/77; PULSE 108; RESP 17; TEMP 36.7; O2SAT 98; BMI 48.4
== END 2025-05-01 10:02 | disposition home or self-care (01) ==
LOC: HODSOBC 09:07
PROVIDERS: Supervising Provider Obstetrics & Gynecology; Visit Provider Obstetrics & Gynecology
DX: O09.523 Supervision of elderly multigravida, third trimester (principal); O09.893 Supervision of other high risk pregnancies, third trimester; O99.213 Obesity complicating pregnancy, third trimester; E66.01 Morbid (severe) obesity due to excess calories; Z3A.29 29 weeks gestation of pregnancy; O99.843 Bariatric surgery status complicating pregnancy, third trimester
CPT/HCPCS: 99214; G0463

== ENCOUNTER 2025-05-17 08:56 | Outpatient (AMB) | payer OTHER, SELFPAY ==
[2025-05-17 09:16] VITALS: BP 124/84; PULSE 98; RESP 18; TEMP 36.7; O2SAT 98; BMI 49.4
--- NOTE | 2025-05-17 09:16 | OBCLNT_ITS ---
Vital Signs 05/17/25 09:16 Height 1.65 m Height Method Stated Weight 134.433 kg Weight Measurement Method Standing Scale BMI 49.4 BP 124/84 Blood Pressure Source Automatic Cuff Blood Pressure Location Left Upper Arm Position Sitting Respiration 18 Pulse 98 Pulse Source Monitor Temp 98.1 F Temp Source Oral Pulse Oximetry (%) 98 Oxygen Delivery Method Room Air Allergies/Home Meds Allergies & Medications Allergies No Known Allergies Allergy (Verified 05/17/25 09:21) Medication Reconciliation vits no.126-ferrous fum 28 mg iron-folic acid 800 mcg tablet (Classic ) 1 tab PO DAILY 12/05/24 [History Confirmed 05/17/25] aspirin 81 mg tablet 81 mg PO QDAY 05/01/25 [History Confirmed 05/17/25] Intake Visit Data Collection New Patient or Established: Established Patient (seen at [facility] within 3 years) Reason for Visit:: CARE Seen by Clinical Staff ONLY (RN/MA): No Cytologist Required: No Do You Feel Safe at Home: Yes Authorities Contacted: N/A PCP or OBGYN visit in last 3 months: Yes Hx Now: Yes Are you currently on any form of Control: No Pain Present Currently: No Pain Scale Used: Lopez-Springer/Numerical Pain scale:: 0 Smoking Status Smoking Status: Never smoker Immunizations Flu Vaccine in the Last 12 Months: No Flu Vaccine Exclusion Criteria: Refused by Patient Questionnaires Covid-19 Vaccine Questionnaire Has patient been vacinated for Covid-19 Have you been vacinated for Covid-19: Yes PHQ-9 PHQ-2 Over the last 2 weeks, how often have you been bothered by any of the following problems? 1. Little interest or pleasure in doing things: not at all 2. Feeling down, depressed, or hopeless: not at all Total score: 0 PHQ-9 3. Trouble falling or staying asleep, or sleeping too much: Not at all 4. Feeling tired or having little energy: Not at all 5. Poor appetite or overeating: Not at all 6. Feeling bad about yourself - or that you are a failure or have let yourself or your family down: Not at all 7. Trouble concentrating on things, such as reading the newspaper or watching television: Not at all 8. Moving or speaking so slowly that other people could have noticed? - Or the opposite - being so fidgety or restless that you have been moving around a lot more than usual: not at all 9. Thoughts that you would be better off or of hurting yourself in some way: Not at all Total score: 0 Source: Developed by Drs. Rosalino Jones, Maranda Kearney, Leon Almonte and colleagues, with an educational joe from [employer] Depression screen completed yes Social History Living Situation History Lives With: Family Housing: House Housing Other:: Patient works at [employer] in [place] Tobacco History Smoking Status: Never smoker Second Hand Smoke Exposure: No Alcohol History Alcohol Intake: Never Domestic Abuse History Do You Feel Safe at Home: Yes Care OB Visit Log OB Flowsheet Initial Weight: Not Recorded Date -?-?-?-?-?-?-?-?-?-?-?-?- EGA Weight BP Alb Glu CTX Pres Fundal ht FHR Mov Dilation Station Effacement Hx Notes Visit Note 12/05/24 -?-?-?-?-?-?-?-?-?-?-?-?- 8w 1d 118.047 kg 123/78 145 12/26/24 -?-?-?-?-?-?-?-?-?-?-?-?- 11w 1d 118.841 kg 127/89 155 No vaginal bleeding. Patient is anxious as she has had 2 early miscarriages. Live intrauterine with crown- rump length of 4.51 cm corresponding 11 weeks 2 days seen. Patient does desire NIPT. She works at [employer]. Her is present today. 01/24/25 -?-?-?--?-?-?-?-?-?-?-?-?- 15w 2d 121.109 kg 127/81 15 157 absent No vaginal bleeding or contractions 03/13/25 -?-?-?-?-?-?-?-?-?-?-?-?- 22w 1d 125.872 kg 119/80 23 134 active Reviewed normal ultrasound 03/06/2025 Dr. Deluca. NIPT the second time she did it was 46XX. No contractions or vaginal bleeding. No loss of fluids. 04/12/25 -?-?-?-?-?-?-?-?-?-?-?-?- 26w 3d 130.238 kg 135/80 occasional 27 156 active + FM no UCs or VB Went to OBT with VB recently 05/01/25 -?-?-?-?-?-?-?-?-?-?-?-?- 29w 1d 132.052 kg 113/77 occasional 32 134 active + FM No UCs or VB Has f/u US with Dr Deluca 05/1505/17/25 -?-?-?-?-?-?-?-?-?-?-?-?- 31w 3d 134.433 kg 124/84 occasional 32 156 active Reports good movement. Denies leaking, bleeding, contractions. Patient is taking low-dose baby aspirin. And watching diet. Reports good movement. Denies leaking, bleeding, contractions. Patient is taking low-dose baby aspirin. And watching diet. denies bleeding Tdap today. Discussed labor precautions kick count twice a day. Schedule low weekly NST BPP. Return in 2 weeks OB MICHAEL Calculator Estimated Delivery Date Method Current WG Current Estimate 07/16/25 Ultrasound #1 31w 3d Other Estimates 07/09/25 LMP (Uncertain) 32w 3d 07/09/25 Ultrasound #2 32w 3d 07/16/25 Manual 31w 3d final michael: 06/25 10/16 Expected Delivery Route/Plan 35 y/o labs on the chart.O+/antibody negative/rubella immune/ RPR nonreactive/hepatitis B surface antigen negative/HIV negative/GC negative/ Chlamydia negative /urine culture negative/ 1 hour glucose 82. Hemoglobin A1c on 03/28/25 5.6 hemoglobin 03/28/25 10.8. Specific Issue/Plans 1. Morbid obesity with a BMI of 44 on baby aspirin. For level 2 ultrasound. ( Dr Deluca 03/05/25) 2. History of gastric sleeve in the past 3. Will need NSTs secondary to maternal morbid obesity. 4. AMA Notes Visit Date: 05/17/25 Last Updated by: Jessica Dailey CNM 05/15 sono: EFW 2124, 71% Visit Date: 05/01/25 Last Updated by: Day Spears ([facility] Clinic)MD Pt off work. Will need NSTS/BPPS for BMI of 48 and AMA Did GCT and WNL Visit Date: 04/12/25 Last Updated by: Day Spears (OB Clinic)MD Patient has been to triage twice with bleeding. Most recently 2 days ago. She had a transvaginal ultrasound and no signs of labor or abruption. Patient is having a hard time at work. They are not accommodating her even though I wrote a note for her and told her they do not have a position for her. At this point we will take her off work on disability secondary to bleeding in . She will be on modified bedrest and pelvic rest the remainder of . Visit Date: 03/13/25 Last Updated by: Day Spears (OB Clinic)MD Level 2 ultrasound 03/06/2025 Dr. Deluca live intrauterine in the breech presentation estimated weight 404 g EDC on ultrasound 07/19/2025. EDC by dating 07/09/2025 .normal anatomy . baby is in the 11th percentile SALAS normal placenta is posterior follow-up in 4 weeks for growth. Glucose challenge test ordered along with all lab work for history of gastric sleeve. Including CBC folate and B12 iron. Note for work. Visit Date: 01/24/25 Last Updated by: Day Spears (OB Clinic)MD Patient is present with the father of the baby. She is working at [employer]. She has no complaints. Her NIPT came back not enough cells. The plan is to recheck another NIPT and she has the paperwork for this. She has a level [address] Deluca March 05. Visit Date: 12/26/24 Last Updated by: Day Spears ([facility] Clinic)MD Patient on baby aspirin. Works at [employer]. They are aware she is . Father baby at bedside. labs reviewed. NIPT ordered from [facility]. Visit Date: 12/05/24 Last Updated by: Day Spears (OB Clinic)MD New OB. Labs done. NIPT offered, Baby ASA foe maternal BMI of 42 Office Procedures OBC Clinic LOC & Office Proc's Nursing/Assessment Patient Status: Established Patient OB Clinic Nursing Assessment: Medication Reconciliation, Update PMH in EMR and Vital Signs OB Clinic Coordination of Care: Complex Care and Chronic Disease 1-5, Education Complex Pt/Fam, Consent,records obtained, informed consent, 1 Ins Authorization, Lab and Imaging orders, Results/Orders obtained and Staff clarify orders Special Needs: Heart tones Established Patient Charge Established Patient Point Assignment: 155 Established Patient Point Charge: EP Level 4 (120-155) Injection/Vaccine Admin SQ Im Injection: Yes Immunizations diphth,pertus(acell),tetanus 2.5 Lf unit-8 mcg-5 Lf/0.5mL IM syringe Performing Provider: Jessica Dailey CNM Performing Location: [facility] Administered by: Dagmar Gustafson MA on 05/17/25 13:56 Dose Route Admin Location Dispensed Lot Number Expiration Date Pack age [facility] Technician 0.5 mL IM Left Deltoid 0.5 mL [id number] 06/21/25 [id number] [employer] VIS Given Date VIS Provided VIS Publication Date 05/17/25 Single Vaccine 24 Eligibility Eligibility Date Funding Source Public Non-[facility] Assessment & Plan Diagnosis / Problem List (1) Encounter for supervision of high risk in third trimester, antepartum: Status: Acute (2) H/O gastric sleeve: Status: Acute (3) Morbid obesity with BMI of 40.0-44.9, adult: Status: Acute Plan Tdap. Discussed weekly NST BPP. And that was scheduled. Discussed kick count twice a day. Discussed diet and regular exercise. Increase fluids. Return in 2 weeks OB Additional Plan Follow Up: 2 Weeks (obc)
== END 2025-05-17 09:59 | disposition home or self-care (01) ==
PROVIDERS: Supervising Provider Advanced Practice Midwife; Visit Provider Advanced Practice Midwife
DX: O09.893 Supervision of other high risk pregnancies, third trimester (principal); O99.213 Obesity complicating pregnancy, third trimester; E66.01 Morbid (severe) obesity due to excess calories; O99.843 Bariatric surgery status complicating pregnancy, third trimester; O09.523 Supervision of elderly multigravida, third trimester; Z3A.31 31 weeks gestation of pregnancy; Z23 Encounter for immunization
CPT/HCPCS: 90471; 90715; 96372; 99214; G0463

== ENCOUNTER 2025-06-12 13:14 | Outpatient (AMB) | payer OTHER, SELFPAY ==
[2025-06-12 13:24] VITALS: BP 137/83; PULSE 90; RESP 18; TEMP 36.2; O2SAT 98
--- NOTE | 2025-06-12 13:24 | OBCLNT_ITS ---
Vital Signs 06/12/25 13:24 Weight 138.459 kg Weight Measurement Method Standing Scale BP 137/83 H Blood Pressure Source Automatic Cuff Blood Pressure Location Left Upper Arm Position Sitting Respiration 18 Pulse 90 Pulse Source Monitor Temp 97.2 F Temp Source Oral Pulse Oximetry (%) 98 Oxygen Delivery Method Room Air Allergies/Home Meds Allergies & Medications Allergies No Known Allergies Allergy (Verified 06/12/25 13:25) Medication Reconciliation vits no.126-ferrous fum 28 mg iron-folic acid 800 mcg tablet (Classic ) 1 tab PO DAILY 12/05/24 [History Confirmed 06/12/25] aspirin 81 mg tablet 81 mg PO QDAY 05/01/25 [History Confirmed 06/12/25] Immunizations Immunizations Flu Vaccine in the Last 12 Months: No Flu Vaccine Exclusion Criteria: No Exclusion Criteria Care OB Visit Log OB Flowsheet Initial Weight: Not Recorded Date -?-?-?-?-?-?-?-?-?-?-?-?- EGA Weight BP Alb Glu CTX Pres Fundal ht FHR Mov Dilation Station Effacement Hx Notes Visit Note 12/05/24 -?-?-?-?-?-?-?-?-?-?-?-?- 8w 1d 118.047 kg 123/78 145 12/26/24 -?-?-?-?-?-?-?-?-?-?-?-?- 11w 1d 118.841 kg 127/89 155 No vaginal bleeding. Patient is anxious as she has had 2 early miscarriages. Live intrauterine with crown- rump length of 4.51 cm corresponding 11 weeks 2 days seen. Patient does desire NIPT. She works at [employer]. Her is present today. 01/24/25 -?-?-?-?-?-?-?-?-?-?-?-?- 15w 2d 121.109 kg 127/81 15 157 absent No vaginal bleeding or contractions 03/13/25 -?-?-?-?-?-?-?-?-?-?-?-?- 22w 1d 125.872 kg 119/80 23 134 active Reviewed normal ultrasound 03/06/2025 Dr. Deluca. NIPT the second time she did it was 46XX. No contractions or vaginal bleeding. No loss of fluids. 04/12/25 -?-?-?-?-?-?-?-?-?-?-?-?- 26w 3d 130.238 kg 135/80 occasional 27 156 active + FM no UCs or VB Went to OBT with VB recently 05/01/25 -?-?-?-?-?-?-?-?-?-?-?-?- 29w 1d 132.052 kg 113/77 occasional 32 134 active + FM No UCs or VB Has f/u US with Dr Deluca 05/1505/17/25 -?-?-?-?-?-?-?-?-?-?-?-?- 31w 3d 134.433 kg 124/84 occasional 32 156 active Reports good movement. Denies leaking, bleeding, contractions. Patient is taking low-dose baby aspirin. And watching diet. Reports good movement. Denies leaking, bleeding, contractions. Patient is taking low-dose baby aspirin. And watching diet. denies bleeding Tdap today. Discussed labor precautions kick count twice a day. Schedule low weekly NST BPP. Return in 2 weeks OB 06/12/25 -?-?-?-?-?-?-?-?-?-?-?-?- 35w 1d 138.459 kg 137/83 occasional 35 145 active Patient reports brownish discharge with mucus for the last 2 days. Denies leaking or bleeding. Reports good movement. Patient states that she has not had any bright red bleedi ng and has no complaints of contractions or cramps. NST BPP was reactive today. NuSwab and GBS d one. Discussed labor precautions and kick count. No sex. Rest. Discussed danger signs symptoms ER precautions. Continue with weekly NST BPP. Stop baby aspirin. Return week OB check MICHAEL Calculator Estimated Delivery Date Method Current WG Current Estimate 07/16/25 Ultrasound #1 35w 1d Other Estimates 07/09/25 LMP (Uncertain) 36w 1d 07/09/25 Ultrasound #2 36w 1d 07/16/25 Manual 35w 1d final michael: 06/25 10/16 EFW: 71% Expected Delivery Route/Plan 35 y/o labs on the chart.O+/antibody negative/rubella immune/ RPR nonreactive/hepatitis B surface antigen negative/HIV negative/GC negative/ Chlamydia negative /urine culture negative/ 1 hour glucose 82. Hemoglobin A1c on 03/28/25 5.6 hemoglobin 03/28/25 10.8. Specific Issue/Plans 1. Morbid obesity with a BMI of 44 on baby aspirin. For level 2 ultrasound. ( Dr Deluca 03/05/25) 2. History of gastric sleeve in the past 3. Will need NSTs secondary to maternal morbid obesity. 4. AMA Notes Visit Date: 05/17/25 Last Updated by: Jessica Dailey CNM 05/15 sono: EFW 2124, 71% Visit Date: 05/01/25 Last Updated by: Day Spears ([facility])MD Pt off work. Will need NSTS/BPPS for BMI of 48 and AMA Did GCT and WNL Visit Date: 04/12/25 Last Updated by: Day Spears ([facility])MD Patient has been to triage twice with bleeding. Most recently 2 days ago. She had a transvaginal ultrasound and no signs of labor or abruption. Patient is having a hard time at work. They are not accommodating her even though I wrote a note for her and told her they do not have a position for her. At this point we will take her off work on disability secondary to bleeding in . She will be on modified bedrest and pelvic rest the remainder of . Visit Date: 03/13/25 Last Updated by: Day Spears ([facility])MD Level 2 ultrasound 03/06/2025 Dr. Deluca live intrauterine in the breech presentation estimated weight 404 g EDC on ultrasound 07/19/2025. EDC by dating 07/09/2025 .normal anatomy . baby is in the 11th percentile SALAS normal placenta is posterior follow-up in 4 weeks for growth. Glucose challenge test ordered along with all lab work for history of gastric sleeve. Including CBC folate and B12 iron. Note for work. Visit Date: 01/24/25 Last Updated by: Day Spears ([facility])MD Patient is present with the father of the baby. She is working at [employer]. She has no complaints. Her NIPT came back not enough cells. The plan is to recheck another NIPT and she has the paperwork for this. She has a level [address] Deluca March 05. Visit Date: 12/26/24 Last Updated by: Day Spears ([facility])MD Patient on baby aspirin. Works at [employer]. They are aware she is . Father baby at bedside. labs reviewed. NIPT ordered from [facility]. Visit Date: 12/05/24 Last Updated by: Day Spears ([facility] Clinic)MD New OB. Labs done. NIPT offered, Baby ASA foe maternal BMI of 42 Office Procedures OBC Clinic LOC & Office Proc's Nursing/Assessment Patient Status: Established Patient OB Clinic Nursing Assessment: Medication Reconciliation, Update PMH in EMR and Vital Signs OB Clinic Coordination of Care: Consent,records obtained, informed consent, Education Simp Pt/Fam, Lab and Imaging orders, Results/Orders obtained and Staff clarify orders Special Needs: Heart tones Established Patient Charge Established Patient Point Assignment: 110 Established Patient Point Charge: EP Level 3 (80-115) Assessment & Plan Diagnosis / Problem List (1) Encounter for supervision of high risk in third trimester, antepartum: Status: Acute Plan Discussed labor precautions. Kick count twice a day. Discussed ER precautions and parameters. No sex. Increase rest. No heavy lifting. GBS and NuSwab today. Return in a week OB check Additional Plan Follow Up: 1 Week (obc)
== END 2025-06-12 13:52 | disposition home or self-care (01) ==
LOC: HODSOBC 13:14
PROVIDERS: Supervising Provider Advanced Practice Midwife; Visit Provider Advanced Practice Midwife
DX: O09.523 Supervision of elderly multigravida, third trimester (principal); O09.893 Supervision of other high risk pregnancies, third trimester; O99.213 Obesity complicating pregnancy, third trimester; E66.01 Morbid (severe) obesity due to excess calories; O99.843 Bariatric surgery status complicating pregnancy, third trimester; Z3A.35 35 weeks gestation of pregnancy; Z36.85 Encounter for antenatal screening for Streptococcus B
CPT/HCPCS: 99213; G0463

== ENCOUNTER 2025-06-25 14:22 | Outpatient (AMB) | payer OTHER, SELFPAY ==
--- NOTE | 2025-06-25 15:09 | OBCLNT_ITS ---
Vital Signs 06/25/25 15:10 Height 1.65 m Height Method Stated Weight 139.366 kg Weight Measurement Method Standing Scale BMI 51.2 BP 128/84 Blood Pressure Source Automatic Cuff Blood Pressure Location Left Upper Arm Position Sitting Respiration 20 Pulse 108 H Pulse Source Monitor Temp 98.2 F Temp Source Oral Pulse Oximetry (%) 97 Oxygen Delivery Method Room Air Allergies/Home Meds Allergies & Medications Allergies No Known Allergies Allergy (Verified 06/25/25 15:24) Medication Reconciliation vits no.126-ferrous fum 28 mg iron-folic acid 800 mcg tablet (Classic ) 1 tab PO DAILY 12/05/24 [History Confirmed 06/25/25] aspirin 81 mg tablet 81 mg PO QDAY 05/01/25 [History Confirmed 06/25/25] Immunizations Immunizations Flu Vaccine in the Last 12 Months: Yes Date of most recent flu vaccination: 06/25/25 Flu Vaccine Exclusion Criteria: Already Received Care OB Visit Log OB Flowsheet Initial Weight: Not Recorded Date -?-?-?-?-?-?-?-?-?-?-?-?- EGA Weight BP Alb Glu CTX Pres Fundal ht FHR Mov Dilation Station Effacement Hx Notes Visit Note 12/05/24 -?-?-?-?-?-?-?-?-?-?-?-?- 8w 1d 118.047 kg 123/78 145 12/26/24 -?-?-?-?-?-?-?-?-?-?-?-?- 11w 1d 118.841 kg 127/89 155 No vaginal bleeding. Patient is anxious as she has had 2 early miscarriages. Live intrauterine with crown- rump length of 4.51 cm corresponding 11 weeks 2 days seen. Patient does desire NIPT. She works at [employer]. Her is present today. 01/24/25 -?-?-?-?-?-?-?-?-?-?-?-?- 15w 2d 121.109 kg 127/81 15 157 absent No vaginal bleeding or contractions 03/13/25 -?-?-?-?-?-?-?-?-?-?-?-?- 22w 1d 125.872 kg 119/80 23 134 active Reviewed normal ultrasound 02/22 Dr. Deluca. NIPT the second time she did it was 46XX. No contractions or vaginal bleeding. No loss of fluids. 04/12/25 -?-?-?-?-?-?-?-?-?-?-?-?- 26w 3d 130.238 kg 135/80 occasional 27 156 active + FM no UCs or VB Went to OBT with VB recently 05/01/25 -?-?-?-?-?-?-?-?-?-?-?-?- 29w 1d 132.052 kg 113/77 occasional 32 134 active + FM No UCs or VB Has f/u US with Dr Deluca 05/1505/17/25 -?-?-?-?-?-?-?-?-?-?-?-?- 31w 3d 134.433 kg 124/84 occasional 32 156 active Reports good movement. Denies leaking, bleeding, contractions. Patient is taking low-dose baby aspirin. And watching diet. Reports good movement. Denies leaking, bleeding, contractions. Patient is taking low-dose baby aspirin. And watching diet. denies bleeding Tdap today. Discussed labor precautions kick count twice a day. Schedule low weekly NST BPP. Return in 2 weeks OB 06/12/25 -?-?-?-?-?-?-?-?-?-?-?-?- 35w 1d 138.459 kg 137/83 occasional 35 145 active Patient reports brownish discharge with mucus for the last 2 days. Denies leaking or bleeding. Reports good movement. Patient states that she has not had any bright red bleeding and has no complaints of contractions or cramps. NST BPP was reactive today. NuSwab and GBS d one. Discussed labor precautions and kick count. No sex. Rest. Discussed danger signs symptoms ER precautions. Continue with weekly NST BPP. Stop baby aspirin. Return week OB check 06/25/25 -?-?-?-?-?-?-?-?-?-?-?-?- 37w 0d 139.366 kg 128/84 occasional cephalic 37 145 active +40 lb weight gain. Fetus active. Denies leaking or increased pressure and occasional contractions Discussed weight gain. Continue to do kick count twice a day. We reviewed diet. Labor precautions comfort measures for wrist pain return a week OB check MICHAEL Calculator Estimated Delivery Date Method Current WG Current Estimate 07/16/25 Ultrasound #1 37w 0d Other Estimates 07/09/25 LMP (Uncertain) 38w 0d 07/09/25 Ultrasound #2 38w 0d 07/16/25 Manual 37w 0d final michael: 06/25 10/16 EFW: 71% Expected Delivery Route/Plan 35 y/o labs on the chart.O+/antibody negative/rubella immune/ RPR nonreactive/hepatitis B surface antigen negative/HIV negative/GC negative/ Chlamydia negative /urine culture negative/ 1 hour glucose 82. Hemoglobin A1c on 03/28/25 5.6 hemoglobin 03/28/25 10.8. Specific Issue/Plans 1. Morbid obesity with a BMI of 44 on baby aspirin. For level 2 ultrasound. ( Dr Deluca 03/05/25) 2. History of gastric sleeve in the past 3. Will need NSTs secondary to maternal morbid obesity. 4. AMA Notes Visit Date: 06/25/25 Last Updated by: Jessica Dailey CNM 06/25: GBS/nuswab- Visit Date: 05/17/25 Last Updated by: Jessica Dailey CNM 05/15 sono: EFW 2124, 71% Visit Date: 05/01/25 Last Updated by: Day Spears ([facility])MD Pt off work. Will need NSTS/BPPS for BMI of 48 and AMA Did GCT and WNL Visit Date: 04/12/25 Last Updated by: Day Spears ([facility])MD Patient has been to triage twice with bleeding. Most recently 2 days ago. She had a transvaginal ultrasound and no signs of labor or abruption. Patient is having a hard time at work. They are not accommodating her even though I wrote a note for her and told her they do not have a position for her. At this point we will take her off work on disability secondary to bleeding in . She will be on modified bedrest and pelvic rest the remainder of pr egnancy. Visit Date: 03/13/25 Last Updated by: Day Spears ([facility])MD Level 2 ultrasound 03/06/2025 Dr. Deluca live intrauterine in the breech presentation estimated weight 404 g EDC on ultrasound 07/19/2025. EDC by dating 07/09/2025 .normal anatomy . baby is in the 11th percentile SALAS normal placenta is posterior follow-up in 4 weeks for growth. Glucose challenge test ordered along with all lab work for history of gastric sleeve. Including CBC folate and B12 iron. Note for work. Visit Date: 01/24/25 Last Updated by: Day Spears ([facility])MD Patient is present with the father of the baby. She is working at [employer]. She has no complaints. Her NIPT came back not enough cells. The plan is to recheck another NIPT and she has the paperwork for this. She has a level [address] Deluca March 05. Visit Date: 12/26/24 Last Updated by: Day Spears ([facility])MD Patient on baby aspirin. Works at [employer]. They are aware she is . Father baby at bedside. labs reviewed. NIPT ordered from [facility]. Visit Date: 12/05/24 Last Updated by: Day Spears ([facility])MD New OB. Labs done. NIPT offered, Baby ASA foe maternal BMI of 42 Office Procedures OBC Clinic LOC & Office Proc's Nursing/Assessment Patient Status: Established Patient OB Clinic Nursing Assessment: Medication Reconciliation, Update PMH in EMR and Vital Signs OB Clinic Coordination of Care: AMA, Complex Care and Chronic Disease 1-5, Consent,records obtained, informed consent, Education Simp Pt/Fam, 1 Ins A uthorization, Lab and Imaging orders, Results/Orders obtained and Staff clarify orders Special Needs: Heart tones Established Patient Charge Established Patient Point Assignment: 170 Established Patient Point Charge: EP Level 5 (160-above) Injection/Vaccine Admin SQ Im Injection: Yes Immunizations flu vac ts (6mos up)-PF 45 mcg(15mcg x3)/0.5 mL IM syringe Performing Provider: Jessica Dailey CNM Performing Location: [facility] Administered by: Dagmar Gustafson MA on 06/25/25 16:25 Dose Route Admin Location Dispensed Lot Number Expiration Date Pack age [facility] [employer] 0.5 mL IM Left Deltoid 0.5 mL [id number] 01/21/26 20162-102-48 [id number] [employer] VIS Given Date VIS Provided VIS Publication Date 06/25/25 Single Vaccine 24 Eligibility Eligibility Date Funding Source [facility] Assessment & Plan Diagnosis / Problem List (1) Encounter for supervision of high risk in third trimester, antepartum: Status: Acute Plan Discussed weight gain. Increase activity walk 40 minutes a day. Discussed labor precautions. Kick count twice a day. Return week OB check Additional Plan Follow Up: 1 Week (obc)
[2025-06-25 15:10] VITALS: BP 128/84; PULSE 108; RESP 20; TEMP 36.8; O2SAT 97; BMI 51.2
== END 2025-06-25 15:43 | disposition home or self-care (01) ==
LOC: HODSOBC 14:22
PROVIDERS: Supervising Provider Advanced Practice Midwife; Visit Provider Advanced Practice Midwife
DX: O09.523 Supervision of elderly multigravida, third trimester (principal); Z3A.37 37 weeks gestation of pregnancy; O99.213 Obesity complicating pregnancy, third trimester; E66.01 Morbid (severe) obesity due to excess calories; Z23 Encounter for immunization
CPT/HCPCS: 90471; 90686; 96372; 99215; G0463; J9060

== ENCOUNTER 2025-07-08 11:21 | Outpatient (AMB) | payer OTHER, SELFPAY ==
[2025-07-08 11:51] VITALS: BP 123/83; PULSE 106; RESP 20; TEMP 36.6; O2SAT 98; BMI 52.0
--- NOTE | 2025-07-08 11:51 | AMB.OBPNC ---
Vital Signs 07/08/25 11:51 Height 1.65 m Height Method Stated Weight 141.691 kg Weight Measurement Method Standing Scale BMI 52.0 BP 123/83 Blood Pressure Source Automatic Cuff Blood Pressure Location Left Upper Arm Position Sitting Respiration 20 Pulse 106 H Pulse Source Monitor Temp 97.9 F Temp Source Oral Pulse Oximetry (%) 98 Oxygen Delivery Method Room Air Allergies/Home Meds Allergies & Medications Allergies No Known Allergies Allergy (Verified 07/08/25 11:52) Medication Reconciliation vits no.126-ferrous fum 28 mg iron-folic acid 800 mcg tablet (Classic ) 1 tab PO DAILY 12/05/24 [History Confirmed 07/08/25] aspirin 81 mg tablet 81 mg PO QDAY 05/01/25 [History Confirmed 07/08/25] Immunizations Immunizations Flu Vaccine in the Last 12 Months: Yes Flu Vaccine Exclusion Criteria: Already Received Care OB Visit Log OB Flowsheet Initial Weight: Not Recorded Date <del>?</del> EGA Weight BP Alb Glu CTX Pres Fundal ht FHR Mov Dilation Station Effacement Hx Notes Visit Note 12/05/24 <del>?</del> 8w 1d 118.047 kg 123/78 145 12/26/24 <del>?</del> 11w 1d 118.841 kg 127/89 155 No vaginal bleeding. Patient is anxious as she has had 2 early miscarriages. Live intrauterine with crown-rump length of 4.51 cm corresponding 11 weeks 2 days seen. Patient does desire NIPT. She works at [employer]. Her is present today. 01/24/25 <del>?</del> 15w 2d 121.109 kg 127/81 15 157 absent No vaginal bleeding or contractions 03/13/25 <del>?</del> 22w 1d 125.872 kg 119/80 23 134 active Reviewed normal ultrasound 03/06/2025 Dr. Deluca. NIPT the second time she did it was 46XX. No contractions or vaginal bleeding. No loss of fluids. 04/12/25 <del>?</del> 26w 3d 130.238 kg 135/80 occasional 27 156 active +FM no UCs or VB Went to OBT with VB recently 05/01/25 <del>?</del> 29w 1d 132.052 kg 113/77 occasional 32 134 active +FM No UCs or VB Has f/u US with Dr Deluca 05/1505/17/25 <del>?</del> 31w 3d 134.433 kg 124/84 occasional 32 156 active Reports good movement. Denies leaking, bleeding, contractions. Patient is taking low-dose baby aspirin. And watching diet. Reports good movement. Denies leaking, bleeding, contractions. Patient is taking low-dose baby aspirin. And watching diet. denies bleeding Tdap today. Discussed labor precautions kick count twice a day. Schedule low weekly NST BPP. Return in 2 weeks OB 06/12/25 <del>?</del> 35w 1d 138.459 kg 137/83 occasional 35 145 active Patient reports brownish discharge with mucus for the last 2 days. Denies leaking or bleeding. Reports good movement. Patient states that she has not had any bright red bleeding and has no complaints of contractions or cramps. NST BPP was reactive today. NuSwab and GBS done. Discussed labor precautions and kick count. No sex. Rest. Discussed danger signs symptoms ER precautions. Continue with weekly NST BPP. Stop baby aspirin. Return week OB check 06/25/25 <del>?</del> 37w 0d 139.366 kg 128/84 occasional cephalic 37 145 active +40 lb weight gain. Fetus active. Denies leaking or increased pressure and occasional contractions Discussed weight gain. Continue to do kick count twice a day. We reviewed diet. Labor precautions comfort measures for wrist pain return a week OB check 07/08/25 <del>?</del> 38w 6d 141.691 kg 123/83 occasional cephalic 38 145 active Reports good movement. Denies leaking or bleeding. Occasional contractions. Patient compliant with her weekly NST BPP. No other complaints Patient scheduled for induction July 12, 2025. Reviewed induction and patient will call for bed. Encouraged patient to continue kick count twice a day. To watch for labor signs and symptoms. We reviewed labor signs and symptoms. Patient will continue her NST BPP MICHAEL Calculator Estimated Delivery Date Method Current WG Current Estimate 07/16/25 Ultrasound #1 38w 6d Other Estimates 07/09/25 LMP (Uncertain) 39w 6d 07/09/25 Ultrasound #2 39w 6d 07/16/25 Manual 38w 6d final michael: 07/16/25 EFW: 71% Expected Delivery Route/Plan 35 y/o labs on the chart.O+/antibody negative/rubella immune/ RPR nonreactive/hepatitis B surface antigen negative/HIV negative/GC negative/ Chlamydia negative /urine culture negative/ 1 hour glucose 82. Hemoglobin A1c on 03/28/25 5.6 hemoglobin 03/28/25 10.8. Specific Issue/Plans 1. Morbid obesity with a BMI of 44 on baby aspirin. For level 2 ultrasound. ( Dr Deluca 03/05/25) 2. History of gastric sleeve in the past 3. Will need NSTs secondary to maternal morbid obesity. 4. AMA Notes Visit Date: 06/25/25 Last Updated by: Jessica Dailey CNM 06/25: GBS/nuswab- Visit Date: 05/17/25 Last Updated by: Jessica Dailey CNM 05/15 sono: EFW 2124, 71% Visit Date: 05/01/25 Last Updated by: Day Spears ([facility])MD Pt off work. Will need NSTS/BPPS for BMI of 48 and AMA Did GCT and WNL Visit Date: 04/12/25 Last Updated by: Day Spears ([facility])MD Patient has been to triage twice with bleeding. Most recently 2 days ago. She had a transvaginal ultrasound and no signs of labor or abruption. Patient is having a hard time at work. They are not accommodating her even though I wrote a note for her and told her they do not have a position for her. At this point we will take her off work on disability secondary to bleeding in . She will be on modified bedrest and pelvic rest the remainder of . Visit Date: 03/13/25 Last Updated by: Day Spears ([facility])MD Level 2 ultrasound 03/06/2025 Dr. Deluca live intrauterine in the breech presentation estimated weight 404 g EDC on ultrasound 07/19/2025. EDC by dating 07/09/2025 .normal anatomy . baby is in the 11th percentile SALAS normal placenta is posterior follow-up in 4 weeks for growth. Glucose challenge test ordered along with all lab work for history of gastric sleeve. Including CBC folate and B12 iron. Note for work. Visit Date: 01/24/25 Last Updated by: Day Spears ([facility])MD Patient is present with the father of the baby. She is working at [employer]. She has no complaints. Her NIPT came back not enough cells. The plan is to recheck another NIPT and she has the paperwork for this. She has a level [address] Deluca March 05. Visit Date: 12/26/24 Last Updated by: Day Spears ([facility])MD Patient on baby aspirin. Works at [employer]. They are aware she is . Father baby at bedside. labs reviewed. NIPT ordered from [facility]. Visit Date: 12/05/24 Last Updated by: Day Spears ([facility])MD New OB. Labs done. NIPT offered, Baby ASA foe maternal BMI of 42 Office Procedures OBC Clinic LOC & Office Proc's Nursing/Assessment Patient Status: Established Patient OB Clinic Nursing Assessment: Medication Reconciliation, Update PMH in EMR and Vital Signs OB Clinic Coordination of Care: AMA, Complex Care and Chronic Disease 1-5, Consent,records obtained, informed consent, Education Simp Pt/Fam, 1 Ins Authorization, Lab and Imaging orders, Results/Orders obtained and Staff clarify orders Special Needs: Heart tones Established Patient Charge Established Patient Point Assignment: 170 Established Patient Point Charge: EP Level 5 (160-above) Assessment & Plan Diagnosis / Problem List (1) Encounter for supervision of high risk in third trimester, antepartum: Status: Acute (2) Morbid obesity with BMI of 40.0-44.9, adult: Status: Acute (3) H/O gastric sleeve: Status: Acute Plan Reviewed kick count twice a day. Discussed labor precautions. Patient to continue with NST BPP weekly. Induction for labor was scheduled July 12, 2025 patient I reviewed induction process with patient. She will call for bed return in a week if undelivered Additional Plan Follow Up: 1 Week (obc)
== END 2025-07-08 12:46 | disposition home or self-care (01) ==
LOC: HODSOBC 11:21
PROVIDERS: Supervising Provider Advanced Practice Midwife; Visit Provider Advanced Practice Midwife
DX: O09.893 Supervision of other high risk pregnancies, third trimester (principal); O99.213 Obesity complicating pregnancy, third trimester; E66.01 Morbid (severe) obesity due to excess calories; O99.843 Bariatric surgery status complicating pregnancy, third trimester; Z3A.38 38 weeks gestation of pregnancy
CPT/HCPCS: 99215; G0463

== ENCOUNTER 2025-07-10 10:29 | Outpatient (RCR) | payer OTHER, SELFPAY ==
--- NOTE | 2025-05-22 11:02 | XR_ITS ---
Examination: Biophysical profile, ultrasound Date and time of exam: May 22, 2025, 1150 hours INDICATIONS: Diagnosis maternal obesity Technique: Multiple transabdominal sonographic images of the pelvis abdomen obtained. Attention is directed to the breathing movement, gross body movement, amniotic fluid volume and tone. Findings: Amniotic fluid index 13.4 cm Total biophysical profile is 8 of 8. breathing movement is 2. Gross body movement is 2. tone is 2. Qualitative amniotic fluid volume is 2 Impression: Biophysical profile is 8 of 8.
[2025-05-22 12:09] VITALS: BP 136/73; PULSE 107; RESP 16; TEMP 36.9
--- NOTE | 2025-05-29 10:03 | XR_ITS ---
Examination: Biophysical profile, ultrasound Date and time of exam: 05/29/2025, 10:02 a.m. INDICATION: Weekly NST and BPP due to obesity COMPARISON: US BPP 05/22/2025 Technique: Multiple transabdominal sonographic images of the pelvis abdomen obtained. Attention is directed to the breathing movement, gross body movement, amniotic fluid volume and tone. Findings: Single live IUP in cephalic position Total biophysical profile is 8 of 8. breathing movement is 2. Gross body movement is 2. tone is 2. Qualitative amniotic fluid volume is 2 SALAS: 13.0 cm. FHR: 147 bpm. Impression: Biophysical profile is 8 of 8 as before.
[2025-05-29 10:30] VITALS: BP 126/72; RESP 16; TEMP 36.8
--- NOTE | 2025-06-05 10:20 | XR_ITS ---
Examination: Biophysical profile, ultrasound Date and time of exam: June 05, 2025, 10:20 a.m. INDICATIONS: Diagnosis maternal obesity Technique: Multiple transabdominal sonographic images of the pelvis abdomen obtained. Attention is directed to the breathing movement, gross body movement, amniotic fluid volume and tone. Findings: Amniotic fluid index 12.1 cm Total biophysical profile is 8 of 8. breathing movement is 2. Gross body movement is 2. tone is 2. Qualitative amniotic fluid volume is 2 Impression: Biophysical profile is 8 of 8.
[2025-06-05 11:18] VITALS: BP 136/73; PULSE 100; RESP 16; TEMP 37
--- NOTE | 2025-06-12 11:09 | XR_ITS ---
Examination: Biophysical profile, ultrasound Date and time of exam: June 12 2025, 1109 hours INDICATIONS: Diagnosis maternal obesity Technique: Multiple transabdominal sonographic images of the pelvis abdomen obtained. Attention is directed to the breathing movement, gross body movement, amniotic fluid volume and tone. Findings: Amniotic fluid index 19.0 cm Total biophysical profile is 8 of 8. breathing movement is 2. Gross body movement is 2. tone is 2. Qualitative amniotic fluid volume is 2 Impression: Biophysical profile is 8 of 8.
[2025-06-12 11:34] VITALS: TEMP 36.9
--- NOTE | 2025-06-19 10:16 | XR_ITS ---
EXAMINATION: US OB biophysical profile ORDERING PROVIDER: Jessica Dailey CNM HISTORY: WEEKLY NST/BPP; OBESITY TECHNIQUE: Multiple transabdominal sonographic images were obtained by ct scan technologist and submitted for interpretation. COMPARISON: 06/12/2025, OB ultrasound. FINDINGS: FETUS: Hdez. PRESENTATION: Cephalic. HEART MOTION: 152 beats/min. AMNIOTIC FLUID INDEX: 10.6 cm BREATHING MOVEMENT: 2 . GROSS BODY MOVEMENT: 2 . TONE: 2 . QUALITATIVE AMNIOTIC FLUID VOLUME: 2 TOTAL BIOPHYSICAL PROFILE: 8 of 8 . IMPRESSION: Single live intrauterine gestation with biophysical profile 8 of 8.
[2025-06-19 10:52] VITALS: BP 123/72; PULSE 110; RESP 16; TEMP 36.9
[2025-06-19 11:16] VITALS: BP 132/69; PULSE 106; RESP 16; TEMP 36.8
--- NOTE | 2025-06-26 10:20 | XR_ITS ---
Examination: Biophysical profile, ultrasound Date and time of exam: June 26, 2025, 1027 hours INDICATIONS: Diagnosis maternal obesity Technique: Multiple transabdominal sonographic images of the pelvis abdomen obtained. Attention is directed to the breathing movement, gross body movement, amniotic fluid volume and tone. Findings: Amniotic fluid index 17.8 cm Total biophysical profile is 8 of 8. breathing movement is 2. Gross body movement is 2. tone is 2. Qualitative amniotic fluid volume is 2 Impression: Biophysical profile is 8 of 8.
--- NOTE | 2025-07-03 10:48 | XR_ITS ---
Examination: Biophysical profile, ultrasound Date and time of exam: July 03, 2025, 1151 hours INDICATIONS: Diagnosis maternal obesity Technique: Multiple transabdominal sonographic images of the pelvis abdomen obtained. Attention is directed to the breathing movement, gross body movement, amniotic fluid volume and tone. Findings: Amniotic fluid index 9.8 cm Total biophysical profile is 8 of 8. breathing movement is 2. Gross body movement is 2. tone is 2. Qualitative amniotic fluid volume is 2 Impression: Biophysical profile is 8 of 8.
[2025-07-03 12:08] VITALS: BP 134/68; PULSE 101; RESP 16; TEMP 36.7
--- NOTE | 2025-07-10 10:43 | XR_ITS ---
Examination: Biophysical profile, ultrasound Date and time of exam: July 10, 2025, 1048 hours INDICATIONS: Diagnosis maternal obesity Technique: Multiple transabdominal sonographic images of the pelvis abdomen obtained. Attention is directed to the breathing movement, gross body movement, amniotic fluid volume and tone. Findings: Amniotic fluid index 11.8 cm Total biophysical profile is 8 of 8. breathing movement is 2. Gross body movement is 2. tone is 2. Qualitative amniotic fluid volume is 2 Impression: Biophysical profile is 8 of 8.
[2025-07-10 11:12] VITALS: BP 135/63; PULSE 110; RESP 16; TEMP 36.7
== END 2025-07-10 23:59 | disposition home or self-care (01) ==
LOC: S4S1 10:29
PROVIDERS: Referring Provider Advanced Practice Midwife; Visit Provider Advanced Practice Midwife
DX: O99.213 Obesity complicating pregnancy, third trimester (principal); E66.01 Morbid (severe) obesity due to excess calories; O09.523 Supervision of elderly multigravida, third trimester; O99.843 Bariatric surgery status complicating pregnancy, third trimester; Z3A.40 40 weeks gestation of pregnancy
CPT/HCPCS: 59025; 76819

== ENCOUNTER 2025-07-17 16:03 | Inpatient (IN) | payer OTHER, SELFPAY ==
--- NOTE | 2025-07-12 07:49 | PC.NURSE ---
PT ON PHONE ASKING FOR BED AVAILABILITY FOR IOL, INFORMED OF NO BEDS AVAILABLE AT THIS TIME, EDUCATED ON KICK COUNT AND LABOR PRECAUTIONS, WILL CALL ONCE BED BECOMES AVAILABLE, PT VERBALIZED UNDERSTANDING
--- NOTE | 2025-07-15 16:20 | PC.NURSE ---
CALLED PT, PT STILL , INFORMED OF BEING CALLED NEXT FOR IOL, NO BEDS AVAILABLE AT THIS TIME, EXPECT CALL MAYBE LATER THIS EVENING, EDUCATED ON KICK COUNT AND LABOR PRECAUTIONS, PT C/O LOWER BACK PAIN ONLY, PT VERBALIZED UNDERSTANDING
[2025-07-17] VITALS (65 sets, daily range): BP systolic 121–183; BP diastolic 64–109; PULSE 79–113; RESP 18; TEMP 36.6–37.2; O2SAT 91–100; BMI 52.4
--- NOTE | 2025-07-17 16:52 | XR_ITS ---
EXAMINATION: age Limited TECHNIQUE: Limited transabdominal sonographic images pelvis Date and time: July 17, 2025, 1706 hours INDICATIONS: Unknown presentation and weight, diagnosis maternal obesity FINDINGS: Viable intrauterine gestation cephalic presentation spine maternal left Estimated weight 3783 g Estimated age 39 weeks 1 day IMPRESSION: Viable intrauterine gestation cephalic presentation
[2025-07-17 16:55] LABS: Basophils # (Auto) 0.0 Thou/mm3 (0.0-0.2); Basophils % (Auto) 0 % (0-2.5); Eosinophils # (Auto) 0.2 Thou/mm3 (0.0-0.5); Eosinophils % (Auto) 1 % (0-10); Hematocrit 31.3 % (36.0-46.0); Hemoglobin 9.7 g/dL (12.0-16.0); Immature Granulocytes Auto 0.06 Thou/mm3 (0.00-0.00); Lymphocytes # (Auto) 3.0 Thou/mm3 (1.0-4.8); Lymphocytes % (Auto) 21 % (10-50); Mean Corpuscular HGB Conc 31.0 g/dl (31.0-37.0); Mean Corpuscular Hemoglobin 21.5 pg (25.0-35.0); Mean Corpuscular Volume 69 fL (80-100); Monocytes # (Auto) 0.8 Thou/mm3 (0.0-0.8); Monocytes % (Auto) 6 % (0-12); Neutrophils # (Auto) 10.1 Thou/mm3 (1.8-7.7); Neutrophils % (Auto) 71 % (37-80); Nucleated Red Blood Cell # 0.00 Thou/mm3 (0.00-0.00); Nucleated Red Blood Cell % 0 /100 WBC (0); Platelet Count 486 Thou/mm3 (140-440); RDW Standard Deviation 39.3 fL (36.4-46.3); Red Blood Count 4.52 Miln/mm3 (4.00-5.20); White Blood Count 14.1 Thou/mm3 (3.6-11.0)
[2025-07-17 17:22] LABS: Alanine Aminotransferase < 7 U/L (10-49); Albumin, Serum 3.9 gm/dL (3.5-5.0); Albumin/Globulin Ratio 1.2 (1.2-2.2); Alkaline Phosphatase 164 U/L (46-116); Anion Gap 11 (7-16); Aspartate Amino Transferase 13 U/L (0-34); BUN/Creatinine Ratio 14 Ratio (12-20); Bilirubin,Total 0.2 mg/dL (0.3-1.2); Blood Urea Nitrogen 10 mg/dL (9-23); Calcium 9.4 mg/dL (8.3-10.6); Calcium (Corrected) 9.5 mg/dL (8.5-10.1); Carbon Dioxide 21.1 mMol/L (20.0-31.0); Chloride 107 mMol/L (98-107); Creatinine (Component) 0.7 mg/dL (0.6-1.3); Estimated Creatinine Clearance 161.9 mL/min (>60); Globulin 3.3 gm/dL (2.3-3.5); Glucose 86 mg/dL (74-106); Osmolality,Calculated 275 (275-295); Potassium 4.4 mMol/L (3.4-5.1); Sodium 139 mMol/L (136-145); Total Protein 7.2 gm/dL (5.7-8.2); Uric Acid 4.9 mg/dL (3.1-7.8); eGFR > 60 See Note
[2025-07-17 17:34] LABS: INR 0.9 (0.9-1.3); Partial Thromboplastin Time 26.4 Seconds (22.0-36.0); Prothrombin Time 9.3 Seconds (9.0-12.2)
[2025-07-17 17:56] LABS: Fibrinogen 694 mg/dL (175-375)
[2025-07-17 17:57] LABS: Syphilis Nonreactive (Nonreactive)
[2025-07-17] MEDS: RINGERS LACTATED 1000 ML 1,000 ML 100 ML IV ×2 (17:57→19:44)
[2025-07-17 18:03] LABS: Collection Type, Urine Clean Catch
[2025-07-17 18:07] LABS: Bilirubin,Urine Negative (Negative); Blood,Urine Negative (Negative); Clarity,Urine Clear (Clear/Hazy); Color,Urine Lt-Yellow (Lt Yel-Yel); Glucose, Urine Negative (Negative); Ketones,Urine Negative (Negative); Leukocyte Esterase,Urine Positive (Negative); Nitrite,Urine Negative (Negative); PH,Urine 6.5 (5.0-7.0); Protein,Urine Negative (Neg - Trace); RBC,Urine 3 /hpf (0-3); Specific Gravity,Urine 1.019 (1.001-1.035); Squamous Epithelial Cell,Urine 1 /hpf (0-5); Urobilinogen,Urine Negative mg/dL (0.0-1.0); WBC,Urine 3 /hpf (0-5)
[2025-07-17 19:21] LABS: Creatinine,Random Urine 87 mg/dL (30-125); Protein Total, Random Urine 19 mg/dL (1-14)
--- NOTE | 2025-07-17 21:59 | PD.LDHP ---
Documentation for date of: 07/17/25 OB Labor/Induct. HPI History of Present Illness Chief complaint: IOL : 3 Term pregnancies: 0 pregnancies: 0 Living children: 0 History of Abortions: Spontaneous and Elective: 0 History of sections: No History of : No MICHAEL: 07/16/25 Gestational Age (weeks): 40 Gestational Age (days): 1 History of present illness: 35 y/o at 40.1 weeks for IOL labs on the chart.O+/antibody negative/rubella immune/ RPR nonreactive/hepatitis B surface antigen negative/HIV negative/GC negative/ Chlamydia negative /urine culture negative/ 1 hour glucose 82. Hemoglobin A1c on 03/28/25 5.6 hemoglobin 03/28/25 10.8. Specific Issue/Plans 1. Morbid obesity with a BMI of 44 on baby aspirin. For level 2 ultrasound. ( Dr Deluca 03/05/25) 2. History of gastric sleeve in the past 3. AMA 4. GBS negative 5.elevated BP today in L&D , c/w gestational hypertension, not meeting preeclampsia criteria Labs Labs: Positive: Rubella Titre, Negative: RPR, Hepatitis B, HIV, Chlamydia, Gonorrhea and Group Beta Strep and Unknown: Herpes Type 1, Herpes Type 2 and Covid-19 Review of Systems Review of Systems Systems Reviewed: All systems reviewed, normal except as documented Past Medical History Past Medical History GASTROINTESTINAL: Positive Gastroesophageal Reflux Disease and Obesity (h/o gastric sleeve in 2019) Surgical History SURGICAL: Positive Gastric Bypass Surgery (gastric sleeve); Negative Section Meds Home Medications and Allergies Home Medications ?Medication ?Instructions ?Recorded ?Confirmed ?Type vits no.126-ferrous fum 1 tab PO DAILY 12/05/24 07/17/25 History 28 mg iron-folic acid 800 mcg tablet (Classic ) Allergies Allergy/AdvReac Type Severity Reaction Status Date / Time No Known Allergies Allergy Verified 07/17/25 16:54 OB Exam Physical Exam Vital signs: Temp Pulse Resp BP Pulse Ox 97.8 F 87 18 147/89 H 99 07/17/25 19:05 07/17/25 21:32 07/17/25 19:05 07/17/25 21:32 07/17/25 21:57 Narrative: Size equal to dates uterus non tender Occasional/ contractions non tender FHR is category 1 feta presentation is vertex pelvic exam 1.5/ 40/ -2 vertex by US and EFW is 3783 grams Alert and oriented x 3 no shortness of breath Pain no chest pain no palpitations Chest clear bilaterally no additional sounds, no wheezing no rales CVS regular rate and rhythm No CVAT Abdomen nontender, normal bowel sounds No guarding no rigidity No hernias OB Results Labs 07/17/25 16:30 07/17/25 16:30 Labs: Short CBC 07/17/25 Range/Units 16:30 WBC 14.1 H (3.6-11.0) Thou/mm3 Hgb 9.7 L (12.0-16.0) g/dL Hct 31.3 L (36.0-46.0) % Plt Count 486 H (140-440) Thou/mm3 BMP 07/17/25 16:30 Sodium 139 Potassium 4.4 Chloride 107 Carbon Dioxide 21.1 BUN 10 Creatinine 0.7 Glucose 86 Calcium 9.4 Liver Function 07/17/25 Range/Units 16:30 Total Bilirubin 0.2 L (0.3-1.2) mg/dL AST 13 (0-34) U/L ALT < 7 L (10-49) U/L Alkaline Phosphatase 164 H (46-116) U/L Albumin 3.9 (3.5-5.0) gm/dL Urine 07/17/25 Range/Units 17:30 Urine Color Lt-Yellow (Lt Yel-Yel) Urine Clarity Clear (Clear/Hazy) Urine pH 6.5 (5.0-7.0) Ur Specific [place] 1.019 (1.001-1.035) Urine Protein Negative (Neg - Trace) Urine Glucose (UA) Negative (Negative) [place] P/Cr ratio is 0.2 OB Assessment & Plan Assessment and Plan (1) H/O gastric sleeve: Status: Acute (2) : Status: Acute (3) Gestational hypertension: Status: Acute (4) Encounter for induction of labor: Status: Acute (5) Obesity affecting , antepartum: Status: Acute Additional Plan Induction method: other (cervidil ) Plan: induction Additional Plan Comment: d/w patient . All questions answered (2) Qualifiers: Weeks of gestation: 29 weeks Qualified Code(s): Z3A.29 - 29 weeks gestation of (3) Gestational hypertension Qualifiers: Trimester: third trimester Qualified Code(s): O13.3 - Gestational [-induced] hypertension without significant proteinuria, third trimester (5) Obesity affecting , antepartum Qualifiers: Obesity type affecting : unspecified obesity Qualified Code(s): O99.210 - Obesity complicating , unspecified trimester
[2025-07-18] VITALS (138 sets, daily range): BP systolic 114–179; BP diastolic 56–87; PULSE 71–153; RESP 16–20; TEMP 36.4–37.3; O2SAT 73–100
[2025-07-18] MEDS: RINGERS LACTATED 1000 ML 1,000 ML 100 ML IV (05:23)
[2025-07-18] MEDS: OXYTOCIN in NS 30 units 30 UNIT/500 ML BAG IV (13:57)
[2025-07-18] MEDS: MINERAL OIL 30 ML UDC TOP (15:25)
[2025-07-18] MEDS: OXYTOCIN in NS 20 units 20 UNIT/1,000 ML BAG 125 UNIT IV (15:39)
[2025-07-18] MEDS: TRANEXAMIC ACID 1,000 MG IVPB 1,000 MG/100 ML BAG 200 MG IV (15:39)
[2025-07-18] MEDS: BENZO/LANO/ALOE (Dermoplast) 60 GM CAN 1 SPRAY TOP (15:40)
[2025-07-18] MEDS: LIDOCAINE HCL 1% 20 ML VIAL INFL (15:40)
[2025-07-18] MEDS: IBUPROFEN TAB 400 MG TABLET 800 MG PO (15:54)
--- NOTE | 2025-07-18 15:55 | OBDSUM_ITS ---
Data (Hdez) Data Hx Section: No : 3 Term: 0 : 0 Livin Abortions: Spontaneous & Theraputic: 0 Delivery Data (Hdez) Labor Data Initiation of labor: Induction Induction/Augmentation Agent: Cervidil and Pitocin ROM date: 07/18/25 ROM time: 08:55 Amniotic membrane rupture type: Spontaneous Amniotic fluid description: Clear Delivery Data Onset of labor date: 07/18/25 Onset of labor time: 09:00 Complete dilation date: 07/18/25 Complete dilation time: 13:34 delivery date: 07/18/25 [place] delivery time: 15:37 Placenta delivery date: 07/18/25 Placenta delivery time: 15:39 Stage 1 total time: Labor - Stage 1 Duration 4 hours and 34 minutes Delivered by: Ruth TEAGUE Delivery nurse: Mallorie Zuniga RN [place] nurse: Precious Zavala RN [place] Supervisor at delivery: No Support person(s) at delivery: FOB, patient's mother Other staff at delivery: Vanita Fair RN Delivery Method Delivery method: Normal Vaginal Delivery Presentation: Vertex Anesthesia Type Anesthesia Type: Local and Epidural Placenta Placenta delivery description: Spontaneous cord blood collection: Cord Blood Type Episiotomy Episiotomy description: Right Mediolateral EBL Estimated blood loss (ml): 350 Umbilical Cord cord description: 3 Vessels Data (Hdez) [place] Data order: 1 [place]'s gender: Female Identification band number: [id number] weight (gms): 3965 g Weight (pounds): 8 lbs and 11.9 ozs length: 53.34 cm 1 minute: 7 5 minutes: 9
[2025-07-19] MEDS: IBUPROFEN TAB 400 MG TABLET 800 MG PO ×2 (03:30→11:32)
[2025-07-19 04:01] VITALS: BP 100/58; PULSE 95; RESP 16; TEMP 36.9; O2SAT 96
[2025-07-19 05:39] LABS: Basophils # (Auto) 0.0 Thou/mm3 (0.0-0.2); Basophils % (Auto) 0 % (0-2.5); Eosinophils # (Auto) 0.0 Thou/mm3 (0.0-0.5); Eosinophils % (Auto) 0 % (0-10); Hematocrit 26.3 % (36.0-46.0); Immature Granulocytes Auto 0.07 Thou/mm3 (0.00-0.00); Lymphocytes # (Auto) 2.9 Thou/mm3 (1.0-4.8); Lymphocytes % (Auto) 18 % (10-50); Mean Corpuscular HGB Conc 30.4 g/dl (31.0-37.0); Mean Corpuscular Hemoglobin 21.7 pg (25.0-35.0); Mean Corpuscular Volume 72 fL (80-100); Monocytes # (Auto) 1.1 Thou/mm3 (0.0-0.8); Monocytes % (Auto) 7 % (0-12); Neutrophils # (Auto) 11.8 Thou/mm3 (1.8-7.7); Neutrophils % (Auto) 74 % (37-80); Nucleated Red Blood Cell # 0.00 Thou/mm3 (0.00-0.00); Nucleated Red Blood Cell % 0 /100 WBC (0); Platelet Count 397 Thou/mm3 (140-440); RDW Standard Deviation 40.5 fL (36.4-46.3); Red Blood Count 3.68 Miln/mm3 (4.00-5.20); White Blood Count 15.9 Thou/mm3 (3.6-11.0)
[2025-07-19 05:40] LABS: Hemoglobin 8.0 g/dL (12.0-16.0)
[2025-07-19 07:44] VITALS: BP 121/76; PULSE 90; RESP 18; TEMP 36.6; O2SAT 97
--- NOTE | 2025-07-19 08:45 | ESPR_ITS ---
Subjective Subjective Interval history: The patient is a 35-year-old day #1 status post vaginal delivery yesterday afternoon by Dr. Shah at approximately 1530. Today the patient is resting comfortably in bed. Her is at bedside holding the baby. She has a history of gastric sleeve. BMI is 44. She is working on breast-feeding. Her predelivery hemoglobin was 9.7, her postdelivery hemoglobin is 8. The patient states she would like to go home later today if possible. She is ambulating, voiding, tolerating a general diet and her bleeding is minimal. Exam Vital Signs Temp Pulse Resp BP Pulse Ox O2 Del Method 98 F 90 18 121/76 97 Room Air 07/19/25 07:44 07/19/25 07:44 07/19/25 07:44 07/19/25 07:44 07/19/25 07:44 07/19/25 07:44 Narrative Exam Patient is alert and orient x 3 in no apparent distress. Fundus is firm at umbilicus Extremities showed no significant edema or erythema. Objective Labs 07/19/25 04:10 07/17/25 16:30 Labs: Laboratory Results - last 24 hr 07/19/25 04:10 WBC 15.9 H RBC 3.68 L Hgb 8.0 L Hct 26.3 L MCV 72 L MCH 21.7 L MCHC 30.4 L RDW Std Deviation 40.5 Plt Count 397 D Neut % (Auto) 74 Lymph % (Auto) 18 [place] % (Auto) 7 Eos % (Auto) 0 Baso % (Auto) 0 Neut # (Auto) 11.8 H Lymph # (Auto) 2.9 [place] # (Auto) 1.1 H Eos # (Auto) 0.0 Baso # (Auto) 0.0 Immature Gran # (Auto) 0.07 H Absolute Nucleated RBC 0.00 Immature Gran % 0 Nucleated RBC % 0 Assessment & Plan Problem List (1) H/O gastric sleeve: Status: Acute Assessment and plan: Patient is anemic. Given IV iron (2) Morbid obesity with BMI of 40.0-44.9, adult: Status: Acute (3) care following vaginal delivery: Problem details: Pelvic rest x 6 weeks Status: Acute Time Spent With Patient Time: Total time spent is greater than 50% in coordination of care (as documented) at patient's floor/unit and/or counseling patient: Time with patient: less than 15 minutes
--- NOTE | 2025-07-19 08:54 | ESDS_ITS ---
DS: Providers Provider Date of admission: 07/17/25 16:03 Primary care physician: Sherwin Martinez DO Admitting Provider: Suzette Lewis MD Attending Provider on Admission: Elmer Miranda MD Consults: 07/18/25 16:39 Referral Routine Comment: Attending Provider on DC: Day Spears MD ([facility]) Discharging Provider: Day Spears MD ([facility]) Anticipated date of discharge: 07/19/25 DS: Diagnosis Discharge Diagnosis (1) care following vaginal delivery: Status: Acute Assessment & Plan: Discharge instructions given. Pelvic rest x 6 weeks. (2) H/O gastric sleeve: Status: Acute Assessment & Plan: IV iron given. Encourage iron rich foods. Predelivery hemoglobin 9.7 postdelivery hemoglobin 8.6. (3) Morbid obesity with BMI of 40.0-44.9, adult: Status: Acute Assessment & Plan: Encourage breast-feeding, healthy eating. Problem List Completed Was Problem List Reviewed/Reconciled?: Yes Summary/Hosp Course Brief History: 35 y/o at 40.1 weeks for IOL labs on the chart.O+/antibody negative/rubella immune/ RPR non reactive/hepatitis B surface antigen negative/HIV negative/GC negative/ Chlamydia negative /urine culture negative/ 1 hour glucose 82. Hemoglobin A1c on 03/28/25 5.6 hemoglobin 03/28/25 10.8. Specific Issue/Plans 1. Morbid obesity with a BMI of 44 on baby aspirin. For level 2 ultrasound. ( Dr Deluca 03/05/25) 2. History of gastric sleeve in the past 3. AMA 4. GBS negative 5.elevated BP today in L&D , c/w gestational hypertension, not meeting preeclampsia criteria Patient was admitted by Dr. Lewis 07/17/25. Please see history and physical for further details. Hospital course: Patient underwent induction of labor and went on to deliver vaginally [address] Miranda. Please see delivery notes for further details. day #1 patient was ambulating, voiding, passing flatus, tolerating a general diet. She was working on breast-feeding. Her lochia was minimal. Her pain was controlled with oral pain medications. She was discharged home day #1 in stable condition. Discharge instructions included no intercourse tampons douching or bathtubs x 6 weeks. She was to follow-up in the clinic in 4 to 6 weeks. Peripartum Data Delivery Method: Normal Vaginal Delivery Episiotomy Description: Right Mediolateral complications: none Status at Discharge Functional status at discharge: independent ambulation Overall status at discharge: patient is progressing back to baseline Time Spent with Patient Time attestation: Total time spent providing and/or coordinating discharge services: Time spent: Less than 30 minutes Specific discharge activities: Pelvic rest x 6 weeks Exam Vital Signs Temp Pulse Resp BP Pulse Ox O2 Del Method 98 F 90 18 121/76 97 Room Air 07/19/25 07:44 07/19/25 07:44 07/19/25 07:44 07/19/25 07:44 07/19/25 07:44 07/19/25 07:44 Narrative Exam Patient is alert and orient x 3 in no apparent distress. Her fundus is firm nontender Extremities show no significant edema or erythema Discharge Plan Plan Patient Disposition: HOME (Self Care) Disposition Comment: Stable Patient condition on transfer: Stable Prescriptions/Referrals Prescriptions/Med Rec: New docusate sodium [Stool Softener] 100 mg capsule 100 mg PO QDAY 30 Days Qty: 30 0RF ibuprofen 600 mg tablet 600 mg PO Q6H MDD 4 PRN (Reason: fever or pain) 10 Days Qty: 40 0RF Continued Classic 28 mg iron- 800 mcg tablet 1 tab PO DAILY Referrals: Jessica Dailey CNM [Certified Nurse Certified Paralegal, [employer] HOST/HOSTESS] Sherwin Martinez DO [Primary Care Provider] Patient/Caregiver Discharge Instructions Discharge Activity: activity as tolerated Other Discharge Activity Instructions:: Pelvic rest x 6 weeks. No intercourse tampons douching or bathtubs x 6 weeks. Other Discharge Diet Instructions: High iron diet Education Materials: After a Vaginal , Breastfeed Holds, After Delivery [place] Concerns, Breast Care After , Anemia During Print Language: Thai Activity Restrictions/Additional Instructions: Call with heavy bleeding, fevers or depression. Follow-up in clinic in 4 to 6 weeks Stand Alone Forms: Esha Award Info., Patient Portal Info Letter Discharge Order Discharge Orders: Discharge (Routine); Ordered 07/19/25 Ordered By: Day Spears ([facility]) Planned Discharge Date 07/19/25
[2025-07-19] MEDS: DOCUSATE SOD 100 MG CAPSULE PO (09:19)
[2025-07-19] MEDS: FERRIC SOD GLUC INJ 125 MG in SODIUM CHLORIDE 0.9% 100 ML 110 MG IV (09:19)
[2025-07-19 11:43] VITALS: BP 138/89; PULSE 92; RESP 18; TEMP 36.7; O2SAT 97
[2025-07-19 15:44] VITALS: BP 136/72; PULSE 89; RESP 18; TEMP 36.7; O2SAT 97
--- NOTE | 2025-07-19 16:15 | PC.NURSE ---
Cleared by Diana from social insurance analyst.
--- NOTE | 2025-07-19 16:39 | PC.SS ---
Referral received from JOSE Pandey due to patient scoring high on Anxiety Assessment. No additional concerns reported by RN. SS met with patient at bedside, role and purpose of contact explained to patient. Patient confirmed demographic information and stated her primary medical surrogate decision maker is Marcelo Emiliano [phone], ?s father. Patient explained anxiety is circumstantial and solely based off of delivery process. Patient reported this is her first child and was unsure what delivery was like. Patient's concerns were validated. Patient reported feeling better now that she has been provided education on caring for and self. Patient declined MH referral. However, accepted community resources list with MH section highlighted. Patient denied SI, HI, Ah, and Vh. Patient stated her support system consists of her mother and siblings. Patient denied history of involvement with CWS or having history of DV exposure. Patient and her spouse are employed. She reported they are ineligible for WIC, [employer], and [employer]. Patient will be infant. Patient stated she has all supplies to care for infant, including carseat for transportation. Transportation to be provided by Marcelo Cummings, father of infant. Pedicatrician appt. scheduled for 07/22/25 with [facility] in [place]. Post follow up appt. for patient is pending at this time with Jessica Dailey. JOSE Pandey informed.
== END 2025-07-19 16:40 | disposition home or self-care (01) | DRG 807 ==
LOC: S4SX 07-18 16:05 → S4NX 07-18 18:10
PROVIDERS: Admitting Provider Obstetrics & Gynecology; PCP Family Medicine; Visit Provider Obstetrics & Gynecology
DX: O48.0 Post-term pregnancy (principal); Z37.0 Single live birth; Z3A.40 40 weeks gestation of pregnancy; O99.214 Obesity complicating childbirth; E66.01 Morbid (severe) obesity due to excess calories; O99.02 Anemia complicating childbirth; O13.4 Gestational [pregnancy-induced] hypertension without significant proteinuria, complicating childbirth; O99.844 Bariatric surgery status complicating childbirth
CPT/HCPCS: 36415; 59409; 76815; 80053; 81001; 82570; 84156; 84550; 85025; 85384; 85610; 85730; 86780; 86850; 86900; 86901; 94762; J2590; J2795; J2916; J3010; J3490; J7050; J7120; A9270